=== PATIENT | female | born 1995 | race Caucasian/White ===

== ENCOUNTER 2021-05-24 21:18 | Emergency (ER) | payer OTHER, SELFPAY ==
[2021-05-24 22:01] VITALS: BP 131/83; PULSE 100; RESP 18; TEMP 36.1; O2SAT 100; BMI 72.0
--- NOTE | 2021-05-24 23:30 | ED.ANIMALBIT ---
HPI - Animal Bite General Chief Complaint: Animal Bite Stated Complaint: dog bite Source: patient Mode of arrival: ambulatory Limitations: no limitations History of Present Illness HPI narrative: 25-year-old female with no significant past medical history presents with suspected dog bite to her 3rd right finger. Patient was 2 dogs from fighting, and feels that this could either be a bite or a pinch injury from a prong collar. She did clean out the wound, and has the paperwork that documents proper vaccination for both animals. She did not report any other symptoms. MD complaint: animal bite Onset (ago): hour(s) (Within the hour of arrival) Animal: dog Description of animal: immunizations UTD Mechanism: bite Location - Extremities: right: hand (Right 3rd finger) Pain description: burning Severity scale (1-10): 4 Context: animals fighting Associated symptoms: bleeding Treatments prior to arrival: wound dressing(s) and irrigation Related Data Patient tetanus UTD: No Previous Rx's Medication Instructions Recorded amoxicillin 875 mg-potassium 1 tab PO Q12H 10 Days #20 tab 05/24/21 clavulanate 125 mg tablet (Augmentin) Allergies Allergy/AdvReac Type Severity Reaction Status Date / Time No Known Allergies Allergy Verified 05/24/21 22:01 Review of Systems Review of Systems: Constitutional: No Fever, No Chills ENT/Mouth: No Ear Pain, No Hoarseness, No sore throat Eyes: No Eye Pain, No Swelling, No Redness, No Foreign Body Cardiovascular: No Chest Pain, No SOB Respiratory: No Cough, No Dyspnea Gastrointestinal: No Nausea, No Vomiting, No Diarrhea, No abdominal Pain Genitourinary: No Dysuria, No Hematuria Musculoskeletal: positive right 3rd finger pain, No Myalgias, No Joint Swelling Skin: Positive abrasion to the right 3rd finger, No Skin lacerations, No rash Neuro: No Weakness, No Numbness, No Paresthesias, No Loss of Consciousness, No Dizziness, No Headache Psych: No Anxiety/Panic, No Depression Heme/Lymph: no easy bruising, no Lymphadenopathy Endocrine: No Polyuria, No Polydipsia Yes all other systems are reviewed and are negative [facility] Past Medical History Attestation statement: The following information was validated with the patient. Source: old records reviewed Medical History (Updated 05/24/21 @ 23:33 by Farheen Baxter NP) Obesity Thyroid activity decreased Social History Social History Advance Directives: No Patient : No Physical Exam Vital Signs: Vital Signs: Last Vital Signs Temp 97.0 F 05/24/21 22:01 Pulse 100 05/24/21 22:01 Resp 18 05/24/21 22:01 BP 131/83 05/24/21 22:01 Pulse Ox 100 05/24/21 22:01 Body Mass Index 72.0 Appearance: Alert. Oriented X3. No acute distress. Eyes: Pupils equal, round and reactive to light. ENT: Pharynx normal. Neck: Normal inspection. Neck supple. CVS: Normal heart rate and rhythm. Pulses normal. Respiratory: No respiratory distress. Breath sounds normal. Abdomen: Soft and nontender. Skin: 0.25 cm abrasion to the pad of the 3rd right finger, Skin warm and dry. Normal skin color. Normal skin turgor. Extremities: No lower extremity edema. Neuro: No motor deficit. No sensory deficit. Cranial nerves 2-12 intact. Course Course Course Narrative: Patient presents with a small superficial abrasion, possible puncture wound to the 3rd right pad of her finger tip. Suspected to be dog bite or injury from a caller. She did remove her fingernail on her own. Dogs are fully vaccinated. Plan of care is to treat with Augmentin and to update her Tdap vaccine. She does have full range of motion, and no indication of tendon injury to the extremity. Patient irrigated and cleaned her own wound with copious amounts of saline and hydrogen peroxide Patient will be discharged with Augmentin. Patient verbalized understanding of and agrees plan of care discharge home. MDM - Animal Bite Differential Diagnosis Differential diagnosis: Likely bite by animal and dog bite Medical Records Attestation: I reviewed the patient's medical records. Discharge Plan Discharge Clinical Impression: Dog bite Qualifiers: Encounter type: initial encounter Qualified Code(s): W54.0XXA - Bitten by dog, initial encounter Patient Disposition: Home, Self-Care Instructions: Animal Bite (ED) Additional Instructions: You were evaluated for injuries sustained from a suspected dog bite. We updated your Tdap vaccine. Please take Augmentin twice a day for the next 10 days. Thank you for choosing this emergency department for evaluation. Please follow-up with primary care physician as needed. Return to the emergency department for any new, concerning, or worsening symptoms. Prescriptions: New amoxicillin-pot clavulanate [Augmentin] 875-125 mg tablet 1 tab PO Q12H 10 Days Qty: 20 RF: 0 Interventions: ED Discharge Assessment Last Done: 05/25/21 00:50 Discharge Date/Time: 05/25/21 00:51
[2021-05-25] MEDS: Diphth,Pertus(ACell),Tet Adult 0.5 ML SYRINGE IM (00:35)
[2021-05-25] MEDS: Amoxicillin/Potassium Clav 875 MG TABLET PO (00:35)
== END 2021-05-25 00:51 | disposition home or self-care (01) ==
PROVIDERS: Emergency Provider Internal Medicine; PCP Family Medicine
DX: S60.472A Other superficial bite of right middle finger, initial encounter (principal); W54.0XXA Bitten by dog, initial encounter; Y93.9 Activity, unspecified; Y92.9 Unspecified place or not applicable; Y99.9 Unspecified external cause status
CPT/HCPCS: 90471; 90715; 99283; 99284

== ENCOUNTER 2025-08-21 09:47 | Outpatient (REF) | payer OTHER, SELFPAY ==
--- OUTSIDE RECORDS SUMMARY | 2025-08-21 11:32 | XMS_ITS | Clinical Summary ---
Author Organization [employer] Address [address] [place] [address] [address] [place] [address] Care Team Providers Care Community Liaison Name Role Phone Yesenia Elaine MD Primary Care Provider [phone] Allergies No known active allergies Medications albuterol 108 (90 Base) MCG/ACT inhaler Inhale 2 puffs every 4 (four) hours if needed for wheezing. 18 g 08/11/20 25 2025 Active albuterol (2.5 MG/3ML) 0.083% nebulizer solution Take 3 mL (2.5 mg) by nebulization every 6 (six) hours if needed for wheezing. 75 mL 2 08/11/20 25 Active Tirzepatide-We ight Management (Zepbound) 2.5 MG/0.5ML solution auto-injectorI ndications:Cla ss 3 severe obesity with body mass index (BMI) greater than or equal to 70 in adult, unspecified obesity type, unspecified whether serious comorbidity present (HCC) Inject 0.5 mL (2.5 mg) under the skin 1 (one) time per week. 2 mL 1 08/11/20 25 Active albuterol (2.5 MG/3ML) 0.083% nebulizer solution INHALE 1 VIAL VIA NEBULIZER EVERY 6 HOURS NEEDED FOR WHEEZING 2024 Discontinued(R eorder (will not trigger notification to Pharmacy)) Active Problems Problem Noted Date Diagnosed Date Asthma 08/11/2025 Overview (08/11/2025): Whole life Obesity 08/11/2025 Overview (08/11/2025): Whole life Encounters Date Type Department Care Team Description 08/11/2025 9:30 AM EDT Office Visit [facility] [address] [place] [address] Yesenia Elaine MD Encounter for immunization (Primary Dx); Dietary counseling; Exercise counseling; Class 3 severe obesity with body mass index (BMI) greater than or equal to 70 in adult, unspecified obesity type, unspecified whether serious comorbidity present (HCC); Encounter for health-related screening; Abnormal uterine bleeding (AUB) 08/11/2025 Travel 08/10/2025 Travel 08/08/2025 Telephone [facility] [address] [place] [address] Emily Solorio MA Chart Prep 08/01/2025 Patient Outreach [facility] [address] [place] [phone] Yesenia Elaine MD Care Coordination (CHW outreach for SDOH housing search-referral completed ) 08/01/2025 Patient Outreach [facility] [address] [place] [phone] Jose Marin MD Pre-visit Planning (SDOH screening positive and Tobacco screening negative) from Last 3 Months Immunizations Immunization Administration Dates Next Due DTaP 06/27/2003, 9,04/30/1998,02/12,1997 HPV, Quadrivalent 09/27/2011 HPV, Unspecified 05/25/2011 Hep B, Adolescent or Pediatric 07/01/1998,1996,1997 Hib (HbOC) 12/16/1998, 8,02/12/1998,12/17 Influenza injectable quadriv alent IIV4 with preservative 08/10/2023,07/08/2022 Influenza, IIV3, injectable 07/24/2025 MMR 06/27/2003,12/16/1998 Meningococcal B, Unspecified 03/24/2011 Moderna Covid-19 Vaccine 12+ 08/24/2023,08/30/20 21 Moderna Covid-19 mNexspike Vaccine 12+ OPV, Trivalent 06/30/2003, 9,02/12/1998,12/17 Pneumococcal Conjugate PCV 20 08/11/2025 Pneumococcal Polysaccharide PPSV23 01/05/2018 TD (adult), 2 Lf tetanus tox oid, preservative free, adsorbed 05/03/2016 Tdap 05/25/2021,03/24/2011 Varicella 10/25/2007,01/13/1999 Family History Medical History Relation Name Comments Adjustment Disorder with Mix ed Anxiety and Depressed Mood Mother Anxiety disorder Mother Depression Mother Diabetes Paternal Grandmother Relation Name Status Comments Mother Paternal Grandmother Social History Tobacco Use Types Packs/Day Years [...] Orientation Straight 06/03/2025 10 :09 AM EDT Last Filed Vital Signs Vital Sign Reading [...] Mass Index 78.73 08/11/2025 9:24 AM EDT Plan of Treatment Upcoming Encounters Date Type Department Care Team (Late st Contact Info) Description 08/26/2025 11:20 AM EST Procedure Visit [facility] [address] [place] [address] Yesenia Elaine MD [address] [place] [address] 09/24/2025 3:45 PM EST Office Visit [facility] [address] [place] [address] Yesenia Elaine MD [address] [place] [address] Health Maintenance Due Date Last Done Comments HIV Screening 1997 Lipid Panel 1997 HPV Vaccines (3 - 2-dose series) 12/20/2011 09/27/2011, 05/25/2011 Family Planning (PISQ) 2012 Hepatitis C Screening 2015 Pap Smear 2018 Alcohol/Substance Use Screening 08/11/2026 08/11/2025 Depression Screening 08/11/2026 08/11/2025, 10/20/20 25 Disability Screening 08/11/2026 08/11/2025 SDOH Screening 08/11/2026 08/11/2025 Tobacco Screening 08/11/2026 08/11/2025 DTaP/Tdap/Td Vaccines (9 - Td or Tdap) 05/25/2031 05/25/2021, 05/03/2016, 03/24/2011, Additional history exists Zoster Vaccines (1 of 2) 2047 RSV Patients and Patients Aged 60 years or older (1 - 1-dose 75+ series) 2072 Hepatitis B Vaccines Completed 07/01/1998, 1997, 1997 HIB Vaccines Completed 12/16/1998, 06/1998, 02/12/1998, Additional history exists IPV Vaccines Completed 06/30/2003, 12/22, 02/12/1998, Additional history exists Meningococcal B Vaccine Aged Out 03/24/2011 No l onger eligible based on patient's age to complete this topic COVID-19 Vaccine Completed 07/23/2025, 11/2022, 08/12/2022, Additional history exists Influenza Vaccine Completed 07/24/2025, , 07/08/2022 Pneumococcal Vaccine: Pediatrics (0 to 5 Years) and At-Risk Patients (6 to 49) Years Completed 08/11/2025, 01/05/2018 Hepatitis A Vaccines Aged Out No long er eligible based on patient's age to complete this topic Meningococcal Vaccine Aged Out No krystal wero eligible based on patient's age to complete this topic RSV under 20 months Aged Out No longe r eligible based on patient's age to complete this topic Rotavirus Vaccines Aged Out No longer eligible based on patient's age to complete this topic Insurance [facility] Care Teams Community Liaison Relationship Specialty Start Date End Date Yesenia Elaine MD [address] [place] [address] PCP - General Family Medicine 08/11/25
[2025-08-21 14:19] LABS: MANUAL DIFF FLAG NO
[2025-08-21 14:35] LABS: Hematocrit 42.5 % (37.0-47.0); Hemoglobin 13.3 g/dl (12.0-16.0); Imm Gran Abs Auto 0.03 X10*3/uL (0.00-0.03); Imm Gran Pct Auto 0.4 % (0.0-0.4); Lymphocytes Absolute Auto 2.5 X10*3/uL (1.2-4.9); Mean Corpuscular HGB Conc 31.3 g/dl (31.0-35.0); Mean Corpuscular Hemoglobin 28.4 pg (27.0-33.0); Mean Corpuscular Volume 90.6 fL (80.0-98.0); NRBC Abs Auto 0.000 X10*3/uL (0.0-0.012); NRBC Pct Auto 0.0 /100WBC (0.0-0.2); Platelet Count 290 X10*3/uL (160-400); Red Blood Count 4.69 X10*6/uL (4.20-5.50); White Blood Count 7.4 X10*3/uL (4.8-10.8)
[2025-08-21 14:57] LABS: Alanine Aminotransferase 31 U/L (0-31); Albumin Level 4.5 g/dL (3.5-5.0); Alkaline Phosphatase 63 U/L (39-117); Anion Gap 11 (12-20); Aspartate Amino Transferase 27 U/L (5-31); Blood Urea Nitrogen 18 mg/dL (9-16); Calcium 9.2 mg/dL (8.4-10.2); Carbon Dioxide 28 mmol/L (22-29); Chloride 106 mmol/L (96-108); Cholesterol 154 mg/dL (<200); Estimated Glomerular Filt Rate > 60; HDL Cholesterol 45 mg/dL (>40); Potassium 4.0 mmol/L (3.3-5.1); Sodium 141 mmol/L (135-145); Total Protein 7.5 g/dL (6.5-8.0); Triglycerides 95 mg/dL (<150)
[2025-08-21 16:42] LABS: Free T4 (Free Thyroxine) 0.96 ng/dL (0.71-1.85)
[2025-08-22 04:46] LABS: HIV Num 1 0.07 S/CO (0.00-0.99); ~HepC Num1 0.10 S/CO (0.00-0.79); ~Hepatitis C Antibody Nonreactive (Nonreactive)
[2025-08-22 07:04] LABS: Rubeola IgG (Measles) 87.10 AU/mL
[2025-08-27 22:39] LABS: Testosterone, Free 3.6 pg/mL (0.1-6.4)
== END 2025-08-21 09:48 | disposition home or self-care (01) ==
LOC: HO.CHCLDS 09:47
PROVIDERS: Visit Provider Family Medicine
DX: Z01.84 Encounter for antibody response examination (principal); Z11.4 Encounter for screening for human immunodeficiency virus [HIV]; Z11.59 Encounter for screening for other viral diseases; E66.813 Obesity, class 3; Z68.45 Body mass index [BMI] 70 or greater, adult; Z13.9 Encounter for screening, unspecified; N93.9 Abnormal uterine and vaginal bleeding, unspecified; Z13.29 Encounter for screening for other suspected endocrine disorder
CPT/HCPCS: 36415; 80053; 80061; 82157; 82627; 83525; 84270; 84402; 84403; 84439; 84443; 85025; 86735; 86762; 86765; 86787; 86803; 87389

== ENCOUNTER 2025-09-02 14:21 | Outpatient (REF) | payer OTHER, SELFPAY ==
--- OUTSIDE RECORDS SUMMARY | 2025-08-11 08:30 | XMS_ITS | Encounter Summary ---
Author Organization [employer] Address [address] [place] [id number] Care Team Providers Care Last Greaser Name Role Phone Yesenia Elaine MD Primary Care Provider [phone] Reason for Referral * Imaging (Routine) - Authorized Specialty Diagnoses / Procedures Referred By Contac t Referred To Contact Radiology Diagnoses Abnormal uterine bleeding (AUB) Procedures US Pelvis Transvaginal Yesenia Elaine MD [address] [place] [address] Phone: tel: fax: [address] Phone: tel: fax: Referral ID Status Reason Start Date Expiration Date V isits Requested Visits Authorized [id number] Authorized 08/11/2025 08/11/2026 1 1 * Imaging (Routine) - Authorized Specialty Diagnoses / Procedures Referred By Contac t Referred To Contact Radiology Diagnoses Abnormal uterine bleeding (AUB) Procedures Us Pelvis complete Yesenia Elaine MD [address] [place] [address] Phone: tel: fax: [address] Phone: tel: fax: Referral ID Status Reason Start Date Expiration Date V isits Requested Visits Authorized [id number] Authorized 08/11/2025 08/11/2026 1 1 * Consultation (Routine) - Closed Specialty Diagnoses / Procedures Referred By Contdereck t Referred To Contact Bariatrics Diagnoses Class 3 severe obesity with body mass index (BMI) greater than or equal to 70 in adult, unspecified obesity type, unspecified whether serious comorbidity present (HCC) Yesenia Elaine MD [address] [place] [address] Phone: tel: fax: [facility] [place] [facility] Management [facility] Auxillary Conference [address] Phone: tel: fax: Referral ID Status Reason Start Date Expiration Date V isits Requested Visits Authorized [id number] Closed Specialty Services Required 08/11/2025 08/11/2026 1 1 Reason for Visit * Reason Comments Establish Care Encounter Details Date Type Department Care Team (Late st Contact Info) Description 08/11/2025 9:30 AM EDT Office Visit [facility] [address] [place] [address] Yesenia Elaine MD [address] [place] [address] Encounter for immunization (Primary Dx); Dietary counseling; Exercise counseling; Class 3 severe obesity with body mass index (BMI) greater than or equal to 70 in adult, unspecified obesity type, unspecified whether serious comorbidity present (HCC); Encounter for health-related screening; Abnormal uterine bleeding (AUB) Social History Tobacco Use Types Packs/Day Years Used Date Smoking Tobacco: Never Passive Smoke Exposure: Past Smokeless Tobacco: Never Tobacco Cessation:Counseling Given: Not Answered Alcohol Use Standard Drinks/Week Comments Never 0 (1 standard drink = 0.6 oz pur e alcohol) Depression Answer Date Recorded Patient Health Questionnaire-9 Score 4 08/11/2025 Patient Health Questionnaire-9 Score 4 08/11/2025 Last PHQ-9: Questionnaire Data Not on file 1 Housing Stability Answer Date Recorded What is your housing situation today? I have preston muir 08/01/[address] you li ve. Do you have problems with any of the following? None of the above 08/01/2025 Food Insecurity Answer Date Recorded Within the past 12 months, y ou worried that your food would run out before you got money to buy more: Never True 08/01/2025 Within the past 12 months,th e food you bought just didn't last and you didn't have enough money to get more: Never True 07/2025 Transportation Answer Date Recorded In the past 12 months, has l ack of transportation kept you from medical appts, meetings, work or from getting things needed for daily living? No 08/01/2025 Utilities Answer Date Recorded In the past 12 months, has t he electric, gas, oil or water company threatened to shut off services in your home? No 08/11/2025 Depression Answer Date Recorded Patient Health Questionnaire-2 Score 2 08/11/2025 Internet Access Answer Date Recorded Internet Access Q1 Yes 08/01/2025 Internet Access Q2 Not on file 08/01/2025 Comments No Sex and Gender Information Value Date Recorded Sex Assigned at Female 05/30/2025 10:35 AM EDT Legal Sex Female 10:33 AM EDT Gender Identity Female 05/30/2025 10:35 AM EDT Sexual Orientation Straight 06/03/2025 10 :09 AM EDT documented as of this encounter Last Filed Vital Signs Vital Sign Reading Time Taken Comments Blood Pressure 134/84 08/11/2025 9:24 AM EDT Pulse 82 08/11/2025 9:24 AM EDT Temperature 37.2 C (99 F) 08/11/2025 9:24 AM EDT Respiratory Rate 20 08/11/2025 9:24 AM EDT Oxygen Saturation 98% 08/11/2025 9:24 AM EDT Inhaled Oxygen Concentration - - Weight 199 kg (438 lb 12.8 oz) 08/11/2025 9:24 A M EDT Height 159 cm (5' 2.6 ) 08/11/2025 9:24 AM EDT Body Mass Index 78.73 08/11/2025 9:24 AM EDT documented in this encounter Functional Status * Over the past 2 weeks, how often have you been bothered by any of the following problems? Question Answer Date of Assessment Author Patient Health Questionnaire -2 Score 2 08/11/2025 10:23 AM Dominique Hernandez MA * Little interest or pleasure in doing things Answer Date of Assessment Author Several days 08/11/2025 10:23 AM EDT Dominique Ying MA * Feeling down, depressed, or hopeless Answer Date of Assessment Author Several days 08/11/2025 10:23 AM EDT Dominique Ying MA * Trouble falling or staying asleep, or sleeping too much Answer Date of Assessment Author Not at all 08/11/2025 10:23 AM EDDominique Bach MA * Feeling tired or having little energy Answer Date of Assessment Author Several days 08/11/2025 10:23 AM EDDominique Bach MA * Poor appetite or overeating Answer Date of Assessment Author Not at all 08/11/2025 10:23 AM EDDominique Bach MA * Feeling bad about yourself - or that you are a failure or have let yourself or your family down Answer Date of Assessment Author Several days 08/11/2025 10:23 AM Dominique Hernandez MA * Trouble concentrating on things, such as reading the newspaper or watching television Answer Date of Assessment Author Not at all 08/11/2025 10:23 AM Dominique Hernandez MA * Moving or speaking so slowly that other people could have noticed? Or the opposite - being so fidgety or restless that you have been moving around a lot more than usual. Answer Date of Assessment Author Not at all 08/11/2025 10:23 AM Dominique Hernandez MA * Thoughts that you would be better off or hurting yourself in some way Answer Date of Assessment Author Not at all 08/11/2025 10:23 AM Dominique Hernandez MA * Patient Health Questionnaire-9 Score Answer Date of Assessment Author 4 08/11/2025 10:23 AM Dominique Hernandez MA * How difficult have these problems made it for you to do your work, take care of things at home, or get along with other people? Answer Date of Assessment Author Not difficult at all 08/11/2025 10:23 AM EDT Dominique Richardson MA documented as of this encounter Progress Notes * Yesenia Elaine MD - 08/11/2025 9:30 AM EDT Subjective Patient ID: Gely Griffiths is a 29 y.o. female who presents for [facility]. Dr. Marisol Pompa, [place] Gely Griffiths is a 29-year-old female with a history of asthma and weight issues [facility] and discuss weight management and concerns about PCOS. The patient reports having weight issues her entire life and currently weighs 403 pounds. She has tried various approaches including property inspector, exercise, and meal plans without success. Earlier this year, she was participating in a GLP-1 program but had to discontinue due to cost. She has been doing [facility] since October and was previously working with Dr. Figueroa on thyroid medications, though she reports these are not really working. She was in the process of starting discussions about bariatric surgery with her previous provider. Regarding PCOS concerns, the patient experiences cystic acne, especially in the summertime, and hadhorrific menstrual cramps when younger. She was on control for a long time but had to switch every year and a half because her periods would become irregular again. Her last menstrual period was July 19 through July 23, with cycles typically lasting 3 to 5 days and occurring approximately every 20 days. The patient has a history of asthma and required urgent care treatment the day after An lastyear, where she was given a nebulizer. She denies smoking cigarettes, chewing tobacco, alcohol use,drug use, or vaping. She reports no one smokes around her as her mother quit smoking. She has never been and is currently sexually active with her male partner of 8 years, to whom she is engaged. She and her partner are not actively using control, describing their approach as nm-ax-ibhjyie-it-happens. She has not had a Pap smear in the last 3 years. Medical History - Asthma - Weight issues throughout entire life - Thyroid condition, currently being treated with various medications without success - Urgent care visit for asthma exacerbation on October 17 of last year, treated with nebulizer - Never been Surgical History - Tonsillectomy Medications and Supplements - Thyroid medications - Tried different medications with Dr. Merrill. Not really working. - GLP-1 medication weekly - Was in GLP-1 program earlier this year. Couldn't afford it anymore. - control - Was on for a long time. Had to switch every year and a half because it would go back to being irregular. 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 Genitourinary: Positive for horrific menstrual cramps when younger. Review of Systems Constitutional: Negative for appetite change, fatigue and fever. HENT: Negative for congestion, postnasal drip and rhinorrhea. Eyes: Negative for discharge and redness. Respiratory: Negative for apnea, cough, chest tightness and shortness of breath. Cardiovascular: Negative for chest pain. Gastrointestinal: Negative for abdominal pain. Endocrine: Negative for polyphagia. Genitourinary: Negative for difficulty urinating, dysuria and urgency. Musculoskeletal: Negative for arthralgias. Neurological: Negative for dizziness, light-headedness, numbness and headaches. Hematological: Negative for adenopathy. Does not bruise/bleed easily. Objective Visit Vitals BP 134/84 Pulse 82 Temp 99 ??F (37.2 ??C) (Oral) Resp 20 Ht 5' 2.6 (1.59 m) Wt 438 lb 12.8 oz (199 kg) LMP 07/19/2025 SpO2 98% BMI 78.73 kg/m?? OB Status Having periods Smoking Status Never BSA 2.96 m?? Physical Exam Constitutional: General: She is not in acute distress. Appearance: She is obese. She is not ill-appearing. HENT: Head: Normocephalic and atraumatic. Nose: No congestion. Pulmonary: Effort: Pulmonary effort is normal. No respiratory distress. Breath sounds: Normal breath sounds. Musculoskeletal: Cervical back: Normal range of motion. Neurological: General: No focal deficit present. Mental Status: She is alert. Psychiatric: Mood and Affect: Mood normal. Assessment/Plan Problem List Items Addressed This Visit Obesity Relevant Medications Tirzepatide-Weight Management (Zepbound) 2.5 MG/0.5ML solution auto-injector Other Relevant Orders Referral to Bariatric Surgery Lipid Panel, Standard CBC auto differential Comprehensive Metabolic Panel Insulin TSH W/Reflex to FT4 Other Visit Diagnoses Encounter for immunization - Primary Relevant Orders PCV-20 VACCINE 6 wks + (Completed) Measles, Mumps, and Rubella (MMR) Antibodies (IgG) Panel, Immune Status Varicella Zoster Antibody, IgG Dietary counseling Relevant Medications Tirzepatide-Weight Management (Zepbound) 2.5 MG/0.5ML solution auto-injector Exercise counseling Relevant Medications Tirzepatide-Weight Management (Zepbound) 2.5 MG/0.5ML solution auto-injector Encounter for health-related screening Relevant Orders HIV-1/2 Antigen and Antibodies, Fourth Generation, with Reflexes Hepatitis C Antibody with Reflex to HCV, RNA, Quantitative, Real-Time PCR Abnormal uterine bleeding (AUB) Relevant Orders Us Pelvis complete US Pelvis Transvaginal Testosterone, Free (Dialysis) And Total, MS DHEA Sulfate Sex Hormone Binding Globulin (SHBG) Androstenedione Gely Griffiths is a 29-year-old female with a history of asthma and weight issues presenting for establishment of care and discussion of weight management, thyroid concerns, and possible PCOS evaluation. Obesity Assessment: Patient weighs 403 pounds with BMI 78.7 kg/m. She has struggled with weight issues her entire life and has tried various interventions including property inspector, exercise, meal plans, and GLP-1 program earlier this year which she discontinued due to cost. She was previously discussing bariatric surgery with prior provider. She has been doing [facility] since October and needs to demonstrate 3consecutive months of weight management attempts for insurance coverage of GLP-1 medications. Plan: - Refer to bariatric surgery to start evaluation process - Initiate GLP-1 medication (zepbound discussed as more efficacious option with GLP-1 and GIP components to reduce nausea and side effects) - Start with initial dose and titrate based on response - Recommend multivitamins while on GLP-1 therapy per new guidelines - Check calcium, vitamin D, vitamin B12, and iron levels - Patient educated on GLP-1 mechanism of action and administration technique with demo pen - Patient will receive box with four pens for weekly injections Possible PCOS Assessment: Patient reports cystic acne especially in summer, history of severe menstrual cramps when younger, irregular periods requiring frequent control changes every year and a half, and current short menstrual cycles of approximately 20 days. PCOS diagnosis requires hormone disruption, elevated testosterone levels, and polycystic ovaries on imaging. Plan: - Order transvaginal pelvic ultrasound at [facility] to evaluate for polycystic ovaries - Order AMH test to assess follicle count - Check hormone levels including testosterone and DHA - Order sex hormone binding globulin - If fertility concerns arise, she will check estrogen and progesterone levels and refer to medicine tech for fallopian tube dye test - Potential referral to [facility] if needed Thyroid disorder Assessment: Patient reports ongoing thyroid issues with previous provider Dr. Figueroa, she has tried different thyroid medications without significant improvement. Plan: - Check thyroid levels Asthma Assessment: Patient has history of asthma with family history of maternal asthma. She required nebulizer treatment at urgent care in September of last year. Plan: - Administer pneumonia vaccination as recommended for patients with asthma history Preventive care needs Assessment: 29-year-old female sexually active with male partner for 8 years, not using contraception. No Pap smear in last 3 years. She needs routine preventive screening and immunizations. Plan: - Schedule Pap smear (available Monday and mornings) - Check immunity to varicella and rubella, administer vaccines if not immune - Recommend vitamins given potential for unexpected - Order HIV and Hepatitis C screening - Check cholesterol, kidney function, liver function, and insulin levels documented in this encounter Plan of Treatment Upcoming Encounters Date Type Department Care Team (Late st Contact Info) Description 09/24/2025 3:45 PM EST Office Visit [facility] [address] [place] [address] Yesenia Elaine MD [address] [place] [address] Scheduled Orders Name Type Priority Associated Diagnoses Orde r Schedule Us Pelvis complete Imaging Routine Abnormal uterine bleeding (AUB) Expected: 08/11/2025, Expires: 08/11/2026 US Pelvis Transvaginal Imaging Routine Abnormal uterine bleeding (AUB) Expected: 08/11/2025, Expires: 08/11/2026 Scheduled Referrals Name Type Priority Associated Diagnoses Orde r Schedule Referral to Bariatric Surgery Outpatient Referral Routine Class 3 severe obesity with body mass index (BMI) greater than or equal to 70 in adult, unspecified obesity type, unspecified whether serious comorbidity present (HCC) Expected: 08/11/2025 (Approximate), Expires: 08/11/2026 documented as of this encounter Procedures Procedure Name Priority Date/Time Associated Diagnosis Comments TSH W/REFLEX TO FT4 Routine 08/21/2025 9 :52 AM EDT Class 3 severe obesity with body mass index (BMI) greater than or equal to 70 in adult, unspecified obesity type, unspecified whether serious comorbidity present (HCC) MEASLES, MUMPS, AND RUBELLA (MMR) AB (IGG) PANEL, IMMUNE STATUS Routine 08/21/2025 9:52 AM EDT Encounter for immunization SEX HORMONE BINDING GLOBULIN Routine 08/21/2025 9:52 AM EDT Abnormal uterine bleeding (AUB) CBC WITH AUTO DIFFERENTIAL Routine 08/21/2025 9:52 AM EDT Class 3 severe obesity with body mass index (BMI) greater than or equal to 70 in adult, unspecified obesity type, unspecified whether serious comorbidity present (HCC) HEPATITIS C AB W/REFL TO HCV RNA, QN, PCR Routine 08/21/2025 9:52 AM EDT Encounter for health-related screening INSULIN Routine 08/21/2025 9:52 AM EDT Class 3 severe obesity with body mass index (BMI) greater than or equal to 70 in adult, unspecified obesity type, unspecified whether serious comorbidity present (HCC) DHEA SULFATE Routine 08/21/2025 9:52 AM EDT Abnormal uterine bleeding (AUB) ANDROSTENEDIONE Routine 08/21/2025 9:52 AM EDT Abnormal uterine bleeding (AUB) HIV 1/2 ANTIGEN/ANTIBODY, FOURTH GENERATION W/RFL Routine 08/21/2025 9:52 AM EDT Encounter for health-related screening TESTOSTERONE, FREE (DIALYSIS) AND TOTAL,MS Routine 08/21/2025 9:52 AM EDT Abnormal uterine bleeding (AUB) VARICELLA ZOSTER ANTIBODY, IGG Routine 08/21/2025 9:52 AM EDT Encounter for immunization LIPID PANEL, STANDARD Routine 08/21/2025 9:52 AM EDT Class 3 severe obesity with body mass index (BMI) greater than or equal to 70 in adult, unspecified obesity type, unspecified whether serious comorbidity present (HCC) COMPREHENSIVE METABOLIC PANEL Routine 08/21/2025 9:52 AM EDT Class 3 severe obesity with body mass index (BMI) greater than or equal to 70 in adult, unspecified obesity type, unspecified whether serious comorbidity present (HCC) documented in this encounter Results * Androstenedione (08/21/2025 9:52 AM EDT) [facility] Signature Androstenedione 65 ng/dL [facility] Comment:Adult Female Referen ce Ranges for Androstenedione: Mid Follicular: 51- 213 ng/dL Surge: 73-230 ng/dL Mid Luteal: 73-184 ng/dL Postmenopausal Phase: 20-75 ng/dLThis test was developed and its analytical performancecharacteristics have been determined by [employer].It has not been cleared or approved by the FDA. This assayhas been validated pursuant to the CLIA regulations and isused for clinical purposes.THIS TEST WAS PERFORMED AT:[employer] [id number] [place] [address]RQCDEELAINE GAONA MD,PHD,TOSIN Blood Venous blood specimen / Unknown 08/21/2025 9:52 AM EDT 08/21/2025 2:16 PM EDT us Yesenia Elaine MD LAB BLOOD ORDERABLES Final Re sult Performing Organization Address [facility]/ZIP Co de Phone Number [facility] [address] [place] [phone] [phone] * (ABNORMAL) Sex Hormone Binding Globulin (SHBG) (08/21/2025 9:52 AM EDT) Sex Hormone Binding Globulin 14(A) 17 - 124 nmol/L [facility] Comment:THIS TEST WAS PERFOR MED AT:[employer] [place] [phone] SYLVESTER MD Blood Venous blood specimen / Unknown 08/21/2025 9:52 AM EDT 08/21/2025 2:16 PM EDT Yesenia Elaine MD LAB BLOOD ORDERABLES Final Re sult Performing Organization Address [facility] Co de Phone Number [facility] [address] [place] [phone] * (ABNORMAL) DHEA Sulfate (08/21/2025 9:52 AM EDT) DHEA Sulfate 406(A) 14 - 349 mcg/dL [facility] Comment:THIS TEST WAS PERFOR MED AT:[employer] [place] [phone] SYLVESTER MD Blood Venous blood specimen / Unknown 08/21/2025 9:52 AM EDT 08/21/2025 2:16 PM EDT Yesenia Elaine MD LAB BLOOD ORDERABLES Final Re sult Performing Organization Address [facility] Co de Phone Number [facility] [address] [place] [phone] * Testosterone, Free (Dialysis) And Total, MS (08/21/2025 9:52 AM EDT) Testosterone, Total 21 2 - 45 ng/dL [facility] Comment:For additional infor mation, please refer [email or web address].[email or web address]/faq/[email or web address](This link is being provided for informational/educational purposes only.)This test was developed and its analytical performancecharacteristics have been determined by [employer] [place], [place]. It hasnot been cleared or approved by the U.S. Food and DrugAdministration. This assay has been validated pursuantto the CLIA regulations and is used for clinicalpurposes. Testosterone, Free 3.6 0.1 - 6.4 pg/mL [facility] Comment:This test was develo ped and its analytical performancecharacteristics have been determined by [employer] [place], [place]. It hasnot been cleared or approved by the U.S. Food and DrugAdministration. This assay has been validated pursuantto the CLIA regulations and is used for clinicalpurposes.THIS TEST WAS PERFORMED AT:[employer]/[id number] [place] [address]PBCSYNHCALLIE ARRINGTON MD,PHD Blood Venous blood specimen / Unknown 08/21/2025 9:52 AM EDT 08/21/2025 2:16 PM EDT us Yesenia Elaine MD LAB BLOOD ORDERABLES Final Re sult [facility] [address] [place] [phone] * Varicella Zoster Antibody, IgG (08/21/2025 9:52 AM EDT) Varicella IgG Antibody 13.10 S/CO [facility] Comment:Signal to Cut-off S/ CO Interpretation --------- <1.00 Negative - Antibody not detected > or = 1.00 Positive - Antibody detected A positive result indicates that the patient has antibody to VZV but does not differentiate between an active or past infection. The clinical diagnosis must be interpreted in conjunction with the clinical signs and symptoms of the patient. This assay reliably measures immunity due to previous infection but may not be sensitive enough to detect antibodies induced by vaccination. Thus, a negative result in a vaccinated individual does not necessarily indicate susceptibility to VZV infection. A more sensitive test for vaccination-induced immunity is Varicella Zoster Virus Antibody Immunity Screen, ACIF.THIS TEST WAS PERFORMED AT:[employer] [address] [id number] SYLVESTER MD Blood Venous blood specimen / Unknown 08/21/2025 9:52 AM EDT 08/21/2025 2:23 PM EDT us Yesenia Elaine MD LAB BLOOD ORDERABLES Final Re sult [facility] [address] [place] [address] [phone] * (ABNORMAL) Measles, Mumps, and Rubella (MMR) Antibodies??(IgG) Panel, Immune Status (08/21/2025 9:52 AM EDT) Mumps Virus IgG Antibody <9.00(A) AU/mL [facility] Comment:AU/mL Interpretation ------- <9.00 Not consistent with immunity9.00-10.99 Equivocal>10.99 Consistent with immunityThe presence of mumps IgG antibody suggests immunizationor past or current infection with mumps virus. Rubella IgG Antibody 1.75 Index [facility] Comment:Index Interpretation ----- <0.90 Not consistent with immunity 0.90-0.99 Equivocal > or = 1.00 Consistent with immunityThe presence of rubella IgG antibody suggestsimmunization or past or current infection withrubella virus.THIS TEST WAS PERFORMED AT:[employer] [address] [id number] SYLVESTER MD Rubeola IgG (Measles) 87.10 AU/mL [facility] Comment:AU/mL Interpretation ----- <13.50 Not consistent with [id number] Equivocal>16.49 Consistent with immunityThe presence of measles IgG suggests immunization orpast or current infection with measles virus.For additional information, please refer [email or web address](This link is being provided for informational/educational purposes only.) Blood 08/21/2025 9:52 AM EDT 08/21/2025 2:23 PM EDT Yesenia Elaine MD LAB BLOOD ORDERABLES Final Re sult Performing Organization Address [facility] Co de Phone Number [facility] [address] [place] [phone] * Hepatitis C Antibody with Reflex to HCV, RNA, Quantitative, Real-Time PCR (08/21/2025 9:52 AM EDT) Hepatitis C Antibody Nonreactive Nonreactive [facility] Comment:Antibodies to HCV no t detected; does not exclude early acuteHCV infection. Blood Venous blood specimen / Unknown 08/21/2025 9:52 AM EDT 08/21/2025 2:23 PM EDT us Yesenia Elaine MD LAB BLOOD ORDERABLES Final Re sult Performing Organization Address [facility] Co de Phone Number [facility] [address] [place] [phone] * HIV-1/2 Antigen and Antibodies, Fourth Generation, with Reflexes (08/21/2025 9:52 AM EDT) HIV AB/AG Nonreactive Nonreactive [facility] Comment:HIV-1 p24 Ag and/or HIV-1/HIV-2 Ab not detected.A test result that is nonreactive does not exclude thepossibility of exposure to or infection with HIV-1 and/orHIV-2. Nonreactive results in this assay for individualswith prior exposure to HIV-1 and/or HIV-2 may be due toantigen and antibody levels that are below the limit ofdetection of this assay.The [employer] Alinity HIV Ag/Ab Combo assay result andsupplemental assay results should be interpreted inconjunction with the patient's clinical presentation,history and other laboratory results. If the results areinconsistent with clinical evidence, additional testing issuggested to confirm the result. Blood Venous blood specimen / Unknown 08/21/2025 9:52 AM EDT 08/21/2025 2:23 PM EDT Yesenia Elaine MD LAB BLOOD ORDERABLES Final Re sult Performing Organization Address [facility] Co de Phone Number [facility] [address] [place] [phone] * (ABNORMAL) TSH W/Reflex to FT4 (08/21/2025 9:52 AM EDT) TSH reflex Free T4 4.70(H) 0.32 - 4.0 uIU/mL [facility] Blood Venous blood specimen / Unknown 08/21/2025 9:52 AM EDT 08/21/2025 2:23 PM EDT Yesenia Elaine MD LAB BLOOD ORDERABLES Final Re sult Performing Organization Address [facility] Co de Phone Number [facility] [address] [place] [phone] * Insulin (08/21/2025 9:52 AM EDT) Insulin 18 2 - 29 uU/mL [facility] Comment:This test was perfor med using the Harris chemiluminescentmethod. Values obtained from different assay methods cannot beused interchangeably. This insulin assay shows a possiblecross-reactivity with antibodies generated against insulin(immunoreactive insulin and some patients treated withbovine or porcine insulin). Insulin levels may be measuredlower in patients with insulin autoimmune syndrome orfamilial high pro-insulinemia. Blood Venous blood specimen / Unknown 08/21/2025 9:52 AM EDT 08/21/2025 2:23 PM EDT us Yesenia Elaine MD LAB BLOOD ORDERABLES Final Re sult [facility] [address] [place] [phone] * (ABNORMAL) Comprehensive Metabolic Panel (08/21/2025 9:52 AM EDT) Sodium 141 135 - 145 mmol/L [facility] Potassium 4.0 3.3 - 5.1 mmol/L [facility] Chloride 106 96 - 108 mmol/L [facility] Carbon Dioxide 28 22 - 29 mmol/L [facility] Anion Gap 11(L) 12 - 20 [facility] Urea Nitrogen (BUN) 18(H) 9 - 16 mg/dL [facility] Creatinine, Serum 0.49(L) 0.5 - 1.4 mg/dL [facility] Estimated Glomerular Filt Rate >60 [facility] Comment:Chronic Kidney Disea se: Estimated GFR < 60 mL/min/[id number] Kidney Disease: Estimated GFR < 15 mL/min/1.73m2 Glucose 89 60 - 115 mg/dL [facility] Calcium 9.2 8.4 - 10.2 mg/dL [facility] Bilirubin, Total 0.4 0.0 - 1.0 mg/dL [facility] Aspartate Amino Transferase 27 5 - 31 U/L [facility] Alanine Aminotransferase 31 0 - 31 U/L [facility] Total Protein 7.5 6.5 - 8.0 g/dL [facility] Albumin Level 4.5 3.5 - 5.0 g/dL [facility] Alkaline Phosphatase 63 39 - 117 U/L [facility] Blood Venous blood specimen / Unknown 08/21/2025 9:52 AM EDT 08/21/2025 2:23 PM EDT us Yesenia Elaine MD LAB BLOOD ORDERABLES Final Re sult [facility] [address] [place] [phone] * (ABNORMAL) CBC auto differential (08/21/2025 9:52 AM EDT) White Blood Count 7.4 4.8 - 10.8 X10*3/uL [facility] Red Blood Count 4.69 4.20 - 5.50 X10*6/uL [facility] Hemoglobin 13.3 12.0 - 16.0 g/dl [facility] Hematocrit 42.5 37.0 - 47.0 % [facility] Mean Corpuscular Volume 90.6 80.0 - 98.0 fL [facility] Mean Corpuscular Hemoglobin 28.4 27.0 - 33.0 pg [facility] Mean Corpuscular HGB Conc 31.3 31.0 - 35.0 g/dl [facility] Red Cell Distribution Width 12.8 11.0 - 16.0 % [facility] Platelet Count 290 160 - 400 X10*3/uL [facility] Mean Platelet Volume 11.2 9.4 - 12.3 fL [facility] Neutrophils Percent Auto 53.6 45 - 73 % [facility] Imm Gran Pct Auto 0.4 0.0 - 0.4 % [facility] Lymphocytes Percent Auto 33.5 20 - 40 % [facility] Monocytes Percent Auto 5.4 2 - 11 % [facility] Eosinophils Percent Auto 7.0(H) 0 - 4 % [facility] Basophils Percent Auto 0.1 0 - 2 % [facility] NRBC Pct Auto 0.0 0.0 - 0.2 /100WBC [facility] Neutrophils Absolute Auto 4.0 2.0 - 8.3 x10*3/uL [facility] Imm Gran Abs Auto 0.03 0.00 - 0.03 X10*3/uL [facility] Lymphocytes Absolute Auto 2.5 1.2 - 4.9 X10*3/uL [facility] Monocytes Absolute Auto 0.4 0.1 - 1.2 X10*3/uL [facility] Eosinophils Absolute Auto 0.5(H) 0.0 - 0.4 X10*3/uL [facility] Basophils Absolute Auto 0.0 0.0 - 0.2 X10*3/uL [facility] NRBC Abs Auto 0.000 0.0 - 0.012 X10*3/uL [facility] Blood Venous blood specimen / Unknown 08/21/2025 9:52 AM EDT 08/21/2025 2:16 PM EDT us Yesenia Elaine MD LAB BLOOD ORDERABLES Final Re sult [facility] [address] [place] [phone] * Lipid Panel, Standard (08/21/2025 9:52 AM EDT) Triglycerides 95 <150 mg/dL [facility] Comment:Desirable Triglyceri de: less than 150 mg/dLBorderline High Triglyceride 150-199 mg/dLHigh Triglyceride: 200-499 mg/dLVery High Triglyceride: greater than or equal to 5OO mg/dL Cholesterol 154 <200 mg/dL [facility] Comment:Desirable Cholestero l: less than 200 mg/dLBorderline High Cholesterol: 200-239 mg/dLHigh Cholesterol: greater than 239 mg/dL LDL Cholesterol Calculated 90 <100 mg/dL [facility] Comment:Desirable LDL: less than 100 mg/dLNear Optimal/Above Optimal LDL: 110- 129 mg/dLBorderline High LDL: 130-159 mg/dLHigh LDL: 160-189 mg/dLVery High LDL: greater than or equal to 190 mg/dL HDL Cholesterol 45 >40 mg/dL [facility] Comment:Desirable HDL: great er than 40 mg/dL Note: This HDL assay may give artificially low results in patients with liver disease. Blood Venous blood specimen / Unknown 08/21/2025 9:52 AM EDT 08/21/2025 2:23 PM EDT us Yesenia Elaine MD LAB BLOOD ORDERABLES Final Re sult [facility] [address] [place] [phone] documented in this encounter Visit Diagnoses Diagnosis Encounter for immunization- Primary Dietary counseling Dietary surveillance and counseling Exercise counseling Class 3 severe obesity with body mass index (BMI) greater than or equal to 70 in adult, unspecified obesity type, unspecified whether serious comorbidity present (HCC) Encounter for health-related screening Abnormal uterine bleeding (AUB) documented in this encounter Additional Health Concerns Assessment Noted Time PHQ-9 Depression Total Score: 4 08/11/20 10:23 AM EDT documented as of this encounter Care Teams Last Greaser Relationship Specialty Start Date End Date Yesenia Elaine MD [address] [place] [phone] PCP - General Family Medicine 08/11/25 documented as of this encounter
--- OUTSIDE RECORDS SUMMARY | 2025-09-02 11:00 | XMS_ITS | Encounter Summary ---
Author Organization [employer] [facility] Address [address] [place] [address] Care Team Providers Care Presser [employer] Name Role Phone Yesenia Elaine MD Primary Care Provider [phone] Reason for Referral * Consultation (Routine) - Pending Review Specialty Diagnoses / Procedures Referred By Tyler jasso Referred To Contact Obstetrics Diagnoses Infertility counseling Yesenia Elaine MD [address] [phone] Phone: tel: fax: Referral ID Status Reason Start Date Expiration Date Visits Requested Visits Authorized [id number] Pending Review Specialty Services Required 09/02/2026 1 1 * Medications - Closed Specialty Diagnoses / Procedures Referred By Tyler jasso Referred To Contact Diagnoses Class 3 severe obesity with body mass index (BMI) greater than or equal to 70 in adult, unspecified obesity type, unspecified whether serious comorbidity present (HCC) Yesenia Elaine MD [address] [place] [address] Phone: tel: fax: Referral ID Status Reason Start Date Expiration Date Visits Re quested Visits Authorized [id number] Closed 1 1 Reason for Visit * Reason Comments Cervical Cancer Encounter Details Date Type Department Care Team (Latest Contact Info) Description 09/02/2025 11:00 AM EST Procedure Visit [facility] [address] [place] [address] Yesenia Elaine MD [address] [place] [address] Cervical cancer screening (Primary Dx); Class 3 severe obesity with body mass index (BMI) greater than or equal to 70 in adult, unspecified obesity type, unspecified whether serious comorbidity present (HCC); Infertility counseling Social History Tobacco Use Types Packs/Day Years Used Date Smoking Tobacco: Never Passive Smoke Exposure: Past Smokeless Tobacco: Never Alcohol Use Standard Drinks/Week Comments Never 0 (1 standard drink = 0.6 oz pur e alcohol) Depression Answer Date Recorded Patient Health Questionnaire-9 Score 4 08/11/2025 Patient Health Questionnaire-9 Score 4 08/11/2025 Last PHQ-9: Questionnaire Data Not on file 1 Housing Stability Answer Date Recorded What is your housing situation today? I have [place] 08/01/[address] you li [...] t he electric, gas, oil or water [employer] threatened to shut off services in your [...] Sign Reading Time Taken Comments Blood Pressure 126/72 09/02/2025 10:55 AM EST Pulse 82 09/02/2025 10:55 AM EST Temperature 36.2 C (97.2 F) 09/02/2025 10:55 AM EST Respiratory Rate 20 09/02/2025 10:55 AM EST Oxygen Saturation 98% 09/02/2025 10:55 AM EST Inhaled Oxygen Concentration - - Weight 189 kg (417 lb 6.4 oz) 09/02/2025 10:55 A M EST Height 157.5 cm (5' 2 ) 09/02/2025 10:55 AM EST Body Mass Index 76.34 09/02/2025 10:55 AM EST documented in this encounter Progress Notes * Yesenia Elaine MD - 09/02/2025 11:00 AM EST Subjective Patient ID: Gely Griffiths is a 29 y.o. female who presents for Cervical Cancer. 29 y.o. female here for annual well woman preventive exam. LMP: Patient's last menstrual period was 08/25/2025 (approximate). Sexual activity: Social History Substance and Sexual Activity Sexual activity: Yes Partners: Male control/protection: None intention: No currently BC method: None Smoking hx: Tobacco Use: Low Risk (09/02/2025) Tobacco Smoking Tobacco Use: Never Smokeless Tobacco Use: Never Passive Exposure: Past Alcohol use hx: Social History Substance and Sexual Activity Alcohol use: Never OBHx: No obstetric history on file. IPV: Denies IPV Reviewed family hx Review of patient's family history indicates: Problem: Depression Relation: Mother Name: Age of Onset: (Not Specified) Problem: Anxiety disorder Relation: Mother Name: Age of Onset: (Not Specified) Problem: Adjustment Disorder with Mixed Anxiety and Depressed Mood Relation: Mother Name: Age of Onset: (Not Specified) Problem: Diabetes Relation: Paternal Grandmother Name: Age of Onset: (Not Specified) Health Maintenance: No results found for: HMPAP , HMMAMMO , HMCOLON Review of Systems Constitutional: Negative for appetite [...] for adenopathy. Does not bruise/bleed easily. Objective BP 126/72 Pulse 82 Temp 97.2 ??F (36.2 ??C) (Oral) Resp 20 Ht 5' 2 (1.575 m) Wt 417 lb 6.4 oz (189 kg) LMP 08/25/2025 (Approximate) SpO2 98% BMI 76.34 kg/m?? Physical Exam Vitals reviewed. Exam conducted with a supervisor brake repair present. Constitutional: Appearance: She is obese. HENT: Head: Normocephalic and atraumatic. Pulmonary: Effort: Pulmonary effort is normal. Chest: Chest wall: No deformity, tenderness or crepitus. Breasts: Breasts are symmetrical. Right: Normal. No inverted nipple, mass, nipple discharge, skin change or tenderness. Left: Normal. No inverted nipple, mass, nipple discharge, skin change or tenderness. Genitourinary: Urethra: No prolapse. Vagina: Normal. Cervix: Normal. Rectum: Normal. Musculoskeletal: Cervical back: Normal range of motion. Lymphadenopathy: Upper Body: Right upper body: No supraclavicular, axillary or pectoral adenopathy. Left upper body: No supraclavicular, axillary or pectoral adenopathy. Psychiatric: Mood and Affect: Mood normal. Assessment/Plan Problem List Items Addressed This Visit Obesity Patient currently on pharmacotherapy to assist with management of her weight. Starting weight: 438 lbs Current weight: 417 lbs Review continue lifestyle modifications. Patient was titrated up to treatment dose. Tolerated titration well. Reviewed mechanism of action with patient. Discussed side effects with patient: nausea, vomiting, diarrhea & risk of pancreatitis. Increase dose to maintenance of 5 mg, followup 2-3 months. No contraindications identified: , hx of pancreatitis, hx of medullary thyroid cancer or MEN 2. Relevant Medications Tirzepatide 5 MG/0.5ML solution auto-injector Infertility counseling Relevant Orders Referral to Infertility Pap Smear Cervical cancer screening - Primary 29 y.o. here for cervical cancer screening. Will continue monitoring following ASCCP guidelines. documented in this encounter Miscellaneous Notes * Assessment & Plan Note - Yesenia Elaine MD - 09/02/2025 11:44 AM EST Associated Problem(s): Obesity Patient currently on pharmacotherapy to assist with management of her weight. Starting weight: 438 lbs Current weight: 417 lbs Review continue lifestyle modifications. Patient was titrated up to treatment dose. Tolerated titration well. Reviewed mechanism of action with patient. Discussed side effects with patient: nausea, vomiting, diarrhea & risk of pancreatitis. Increase dose to maintenance of 5 mg, followup 2-3 months. No contraindications identified: , hx of pancreatitis, hx of medullary thyroid cancer or MEN 2. * Assessment & Plan Note - Yesenia Elaine MD - 09/02/2025 11:44 AM EST Associated Problem(s): Cervical cancer screening 29 y.o. here for cervical cancer screening. Will continue monitoring following ASCCP guidelines. documented in this encounter Plan of Treatment Upcoming Encounters Date Type Department Care Team (Late st Contact Info) Description 09/24/2025 3:45 PM EST Office Visit [facility] [address] [place] [address] Yesenia Elaine MD [address] [place] [address] Scheduled Orders Name Type Priority Associated Diagnoses Orde r Schedule Pap Smear Pathology and Cytology Routine Infertility counseling Ordered: 09/02/2025 Scheduled Referrals Name Type Priority Associated Diagnoses Order Schedule Referral to Infertility Outpatient Referral Routine Infertility counseling Expected: 09/02/2025 (Approximate), Expires: 09/02/2026 documented as of this encounter Visit Diagnoses Diagnosis Cervical cancer screening- Primary Screening for malignant neoplasm of the cervix Class 3 severe obesity with body mass index (BMI) greater than or equal to 70 in adult, unspecified obesity type, unspecified whether serious comorbidity present (HCC) Infertility counseling documented in this encounter Additional Health Concerns Assessment Noted Time PHQ-9 Depression Total Score: 4 08/11/20 10:23 AM EDT documented as of this encounter Care Teams Presser [employer] Shaper [employer] Relationship Specialty Start Date End Date Yesenia Elaine MD [address] [place] [phone] PCP - General Family Medicine 08/11/25 documented as of this encounter
--- OUTSIDE RECORDS SUMMARY | 2025-09-02 16:02 | XMS_ITS | Encounter Summary ---
Author Organization [employer] Address [address] [facility] [address] [place] [address] Care Team Providers Care Section Chief Name Role Phone Yesenia Elaine MD Primary Care Provider [phone] Encounter Details Date Type Department Care Team (Latest Contact Info) Description 08/22/2025 Results Follow-Up [facility] [address] [place] [address] Yesenia Elaine MD [address] [place] [address] Lipid Panel, Standard, CBC auto differential, Comprehensive Metabolic Panel, Additional followed-up results: 8 Social History Tobacco Use Types Packs/Day Years [...] AM EDT documented as of this encounter Plan of Treatment Upcoming Encounters Date Type Department Care Team (Late st Contact Info) Description 09/24/2025 3:45 PM EST Office Visit [facility] [address] [place] [address] Yesenia Elaine MD [address] [place] [address] Scheduled Orders Name Type Priority Associated Diagnoses Orde r Schedule TSI (Thyroid Stimulating Immunoglobulin) Lab Routine Abnormal TSH Expected: 08/22/2025 (Approximate), Expires: 08/22/2026 TRAb (TSH Receptor Binding Antibody) Lab Routine Abnormal TSH Expected: 08/22/2025 (Approximate), Expires: 08/22/2026 Thyroid Peroxidase Antibodies Lab Routine Abnormal TSH Expected: 08/22/2025 (Approximate), Expires: 08/22/2026 T4, Free Lab Routine Abnormal TSH Expected: 08/22/2025 (Approximate), Expires: 08/22/2026 TSH with Reflex to Free T4 Lab Routine Abnormal TSH Expected: 08/22/2025 (Approximate), Expires: 08/22/2026 documented as of this encounter Visit Diagnoses Diagnosis Abnormal TSH- Primary documented in this encounter Additional Health Concerns Assessment Noted Time PHQ-9 Depression Total Score: 4 08/11/20 25 10:23 AM EDT documented as of this encounter Care Teams Section Chief Relationship Specialty Start Date End Date Yesenia Elaine MD [address] [place] [address] PCP - General Family Medicine 08/11/25 documented as of this encounter
--- OUTSIDE RECORDS SUMMARY | 2025-09-02 16:02 | XMS_ITS | Encounter Summary ---
Author Organization [employer] Address [address] [facility] [address] [place] [address] Care Team Providers Care Dice Maker Name Role Phone Yesenia Elaine MD Primary Care Provider [phone] Encounter Details Date Type Department Care Team (Latest Contact Info) Description 09/01/2025 Travel Social History Tobacco Use Types Packs/Day Years [...] Description 09/24/2025 3:45 PM EST Office Visit [facility] [address] [place] [address] Yesenia Elaine MD [address] [place] [address] documented as of this encounter Visit Diagnoses Not on filedocumented in this encounter Additional Health Concerns Assessment Noted Time PHQ-9 Depression Total Score: 4 08/11/20 10:23 AM EDT documented as of this encounter Care Teams Dice Maker Relationship Specialty Start Date End Date Yesenia Elaine MD [address] [place] [address] PCP - General Family Medicine 08/11/25 documented as of this encounter
--- OUTSIDE RECORDS SUMMARY | 2025-09-02 16:02 | XMS_ITS | Encounter Summary ---
Author Organization [employer] Address [address] [facility] [address] [place] [address] Care Team Providers Care Battery Assembler Plastic Name Role Phone Yesenia Elaine MD Primary Care Provider [phone] Encounter Details Date Type Department Care Team (Latest Contact Info) Description 09/02/2025 Travel Social History Tobacco Use Types Packs/Day [...] Description 09/24/2025 3:45 PM EST Office Visit [facility] [address] [place] [address] Yesenia Elaine MD [address] [place] [address] documented as of this encounter Visit Diagnoses Not on filedocumented in this encounter Additional Health Concerns Assessment Noted Time PHQ-9 Depression Total Score: 4 08/11/20 10:23 AM EDT documented as of this encounter Care Teams Battery Assembler Plastic Relationship Specialty Start Date End Date Yesenia Elaine MD [address] [place] [address] PCP - General Family Medicine 08/11/25 documented as of this encounter
--- OUTSIDE RECORDS SUMMARY | 2025-09-02 16:02 | XMS_ITS | Clinical Summary ---
Author Organization [employer] Address [address] [place] [address] 7 [place] [address] Care Team Providers Care Resin Painter Name Role Phone Yesenia Elaine MD Primary Care Provider [phone] Allergies No known active allergies Medications albuterol 108 (90 Base) MCG/ACT inhaler Inhale 2 puffs every 4 (four) hours if needed for wheezing. 18 g 08/11/20 25 2025 Active albuterol (2.5 MG/3ML) 0.083% nebulizer solution Take 3 mL (2.5 mg) by nebulization every 6 (six) hours if needed for wheezing. 75 mL 2 08/11/20 25 Active Tirzepatide 5 MG/0.5ML solution auto-injectorI ndications:Cla ss 3 severe obesity with body mass index (BMI) greater than or equal to 70 in adult, unspecified obesity type, unspecified whether serious comorbidity present (HCC) Inject 5 mg under the skin 1 (one) time per week. 2 mL 3 09/02/20 25 Active albuterol (2.5 MG/3ML) 0.083% nebulizer solution INHALE 1 VIAL VIA NEBULIZER EVERY 6 HOURS NEEDED FOR WHEEZING 2024 Discontinued(R eorder (will not trigger notification to Pharmacy)) Tirzepatide-We ight Management (Zepbound) 2.5 MG/0.5ML solution auto-injectorI ndications:Cla ss 3 severe obesity with body mass index (BMI) greater than or equal to 70 in adult, unspecified obesity type, unspecified whether serious comorbidity present (HCC) Inject 0.5 mL (2.5 mg) under the skin 1 (one) time per week. 2 mL 1 08/11/20 25 2024 Discontinued(T herapy completed) Active Problems Problem Noted Date Diagnosed Date Infertility counseling 09/02/2025 Cervical cancer screening 09/02/2025 Assessment & Plan (09/02/2025 11:44 AM EST): 29 y.o. here for cervical cancer screening. Will continue monitoring following ASCCP guidelines. Asthma 08/11/2025 Overview (08/11/2025): Whole life Obesity 08/11/2025 Overview (08/11/2025): Whole life Assessment & Plan (09/02/2025 11:45 AM EST): Patient currently on pharmacotherapy to assist with [...] of medullary thyroid cancer or MEN 2. Encounters Date Type Department Care Team Description 09/02/2025 11:00 AM EST Procedure Visit [facility] [address] [place] [address] Yesenia Elaine MD Cervical cancer screening (Primary Dx); Class 3 severe obesity with body mass index (BMI) greater than or equal to 70 in adult, unspecified obesity type, unspecified whether serious comorbidity present (HCC); Infertility counseling 09/02/2025 Travel 09/01/2025 Travel 08/22/2025 Results Follow-Up [facility] [address] [place] [address] Yesenia Elaine MD Lipid Panel, Standard, CBC auto differential, Comprehensive Metabolic Panel, Additional followed-up results: 8 08/21/2025 Orders Only [facility] [address] [place] [address] Yesenia Elaine MD 08/11/2025 9:30 AM EDT Office Visit [facility] [address] [place] [address] Yesenia Elaine MD Encounter for immunization (Primary Dx); Dietary counseling; Exercise counseling; Class 3 severe obesity with body mass index (BMI) greater than or equal to 70 in adult, unspecified obesity type, unspecified whether serious comorbidity present (HCC); Encounter for health-related screening; Abnormal uterine bleeding (AUB) 08/11/2025 Travel 08/10/2025 Travel 08/08/2025 Telephone [facility] [address] [place] [address] Emily Solorio MA Chart Prep 08/01/2025 Patient Outreach [facility] [address] [place] [phone] Yesenia Elaine MD Care Coordination (CHW outreach for SDOH housing search-referral completed ) 08/01/2025 Patient Outreach [facility] [address] [place] [phone] Jose Marin MD Pre-visit Planning (SDOH screening [...] Mass Index 76.34 09/02/2025 10:55 AM EST Plan of Treatment Upcoming Encounters Date Type Department Care Team ([facility] st Contact Info) Description 09/24/2025 3:45 PM EST Office Visit [facility] [address] [place] [address] Yesenia Elaine MD [address] [place] [address] Health Maintenance Due Date Last Done Comments HPV Vaccines (3 - 2-dose series) 12/20/2011 09/27/2011, 05/25/2011 Family Planning (PISQ) 2012 Pap Smear 2018 Alcohol/Substance Use Screening 08/11/2026 08/11/2025 Depression Screening 08/11/2026 08/11/2025, 08/11/20 25 Disability Screening 08/11/2026 08/11/2025 SDOH Screening 08/11/2026 08/11/2025 Tobacco Screening 09/02/2026 09/02/2025 Lipid Panel 08/21/2030 08/21/2025 DTaP/Tdap/Td Vaccines (9 - Td or Tdap) [...] complete this topic COVID-19 Vaccine Completed 07/23/2025, 06/2024, 08/24/2023, Additional history exists Influenza Vaccine Completed 07/24/2025, , 08/10/2023, Additional history exists Pneumococcal Vaccine: Pediatrics (0 to 5 Years) and At-Risk Patients (6 to 49) Years Completed 08/11/2025, 01/05/2018 HIV Screening Completed 08/21/2025 Hepatitis C Screening Completed 08/21/2025 Hepatitis A Vaccines Aged Out No long [...] on patient's age to complete this topic Procedures Procedure Name Priority Date/Time Associated Diagnosis Comments T4, FREE Routine 08/21/2025 9:52 AM EDT ANDROSTENEDIONE Routine 08/21/2025 9:52 AM EDT Abnormal uterine bleeding (AUB) SEX HORMONE BINDING GLOBULIN Routine 08/21/2025 9:52 AM EDT Abnormal uterine bleeding (AUB) DHEA SULFATE Routine 08/21/2025 9:52 AM EDT Abnormal uterine bleeding (AUB) TESTOSTERONE, FREE (DIALYSIS) AND TOTAL,MS Routine 08/21/2025 9:52 AM EDT Abnormal uterine bleeding (AUB) VARICELLA ZOSTER ANTIBODY, IGG Routine 08/21/2025 9:52 AM EDT Encounter for immunization MEASLES, MUMPS, AND RUBELLA (MMR) AB (IGG) PANEL, IMMUNE STATUS Routine 08/21/2025 9:52 AM EDT Encounter for immunization HEPATITIS C AB W/REFL TO HCV RNA, QN, PCR Routine 08/21/2025 9:52 AM EDT Encounter for health-related screening HIV 1/2 ANTIGEN/ANTIBODY, FOURTH GENERATION W/RFL Routine 08/21/2025 9:52 AM EDT Encounter for health-related screening TSH W/REFLEX TO FT4 Routine 08/21/2025 9 :52 AM EDT Class 3 severe obesity with body mass index (BMI) greater than or equal to 70 in adult, unspecified obesity type, unspecified whether serious comorbidity present (HCC) INSULIN Routine 08/21/2025 9:52 AM EDT Class [...] type, unspecified whether serious comorbidity present (HCC) CBC WITH AUTO DIFFERENTIAL Routine 08/21/2025 9:52 AM EDT Class 3 severe obesity with body mass index (BMI) greater than or equal to 70 in adult, unspecified obesity type, unspecified whether serious comorbidity present (HCC) LIPID PANEL, STANDARD Routine 08/21/2025 9:52 AM EDT Class 3 severe obesity with body mass index (BMI) greater than or equal to 70 in adult, unspecified obesity type, unspecified whether serious comorbidity present (HCC) from Last 3 Months Results * (ABNORMAL) TSH W/Reflex to FT4 (08/21/2025 9:52 AM EDT) TSH reflex Free T4 4.70(H) 0.32 - 4.0 uIU/mL [facility] Blood Venous blood specimen / Unknown 08/21/2025 9:52 AM EDT 08/21/2025 2:23 PM EDT us Yesenia Elaine MD LAB BLOOD ORDERABLES Final Re sult [facility] [address] [place] [address] [phone] * (ABNORMAL) Measles, Mumps, and Rubella (MMR) Antibodies??(IgG) Panel, Immune Status (08/21/2025 9:52 AM EDT) Pathologist [facility] Mumps Virus IgG Antibody <9.00(A) AU/mL [facility] Comment:AU/mL Interpretation ------- <9.00 Not consistent with immunity9.00-10.99 Equivocal>10.99 Consistent with immunityThe presence of mumps IgG antibody suggests immunizationor past or current infection with mumps virus. Rubella IgG Antibody 1.75 Index [facility] Comment:Index Interpretation ----- <0.90 Not consistent with immunity 0.90-0.99 Equivocal > or = 1.00 Consistent with immunityThe presence of rubella IgG antibody suggestsimmunization or past or current infection withrubella virus.THIS TEST WAS PERFORMED AT:[facility] [place] [phone] SYLVESTER MD Rubeola IgG (Measles) 87.10 AU/mL [facility] Comment:AU/mL Interpretation ----- <13.50 Not consistent with vhawitxt22.50-16.49 Equivocal>16.49 Consistent with immunityThe presence of measles IgG suggests immunization orpast or current infection with measles virus.For additional information, please refer tohttp://education.[employer]/faq/XAD933(This link is being provided for informational/educational purposes only.) Blood 08/21/2025 9:52 AM EDT 08/21/2025 2:23 PM EDT us Yesenia Elaine MD LAB BLOOD ORDERABLES Final Re sult Performing Organization Address [facility]/ZIP Co de Phone Number [facility] [address] [place] [phone] * (ABNORMAL) Sex Hormone Binding Globulin (SHBG) (08/21/2025 9:52 AM EDT) Sex Hormone Binding Globulin 14(A) 17 - 124 nmol/L [facility] Comment:THIS TEST WAS PERFOR MED AT:[email or web address] [address] [phone] SYLVESTER MD Blood Venous blood specimen / Unknown 08/21/2025 9:52 AM EDT 08/21/2025 2:16 PM EDT us Yesenia Elaine MD LAB BLOOD ORDERABLES Final Re sult Performing Organization Address [facility] de Phone Number [facility] [address] [place] [phone] * (ABNORMAL) CBC auto differential (08/21/2025 9:52 AM EDT) White Blood Count 7.4 4.8 - 10.8 X10*3/uL [facility] Red Blood Count 4.69 4.20 - 5.50 X10*6/uL [facility] Hemoglobin 13.3 12.0 - 16.0 g/dl [facility] Hematocrit 42.5 37.0 - 47.0 % [facility] Mean Corpuscular Volume 90.6 80.0 - 98.0 fL [facility] Mean Corpuscular Hemoglobin 28.4 27.0 - 33.0 pg [facility] Mean Corpuscular HGB Conc 31.3 31.0 - 35.0 g/dl [facility] Red Cell Distribution Width 12.8 11.0 - 16.0 % [facility] Platelet Count 290 160 - 400 X10*3/uL [facility] Mean Platelet Volume 11.2 9.4 - 12.3 fL [facility] Neutrophils Percent Auto 53.6 45 - 73 % [facility] Imm Gran Pct Auto 0.4 0.0 - 0.4 % [facility] Lymphocytes Percent Auto 33.5 20 - 40 % [facility] Monocytes Percent Auto 5.4 2 - 11 % [facility] Eosinophils Percent Auto 7.0(H) 0 - 4 % [facility] Basophils Percent Auto 0.1 0 - 2 % [facility] NRBC Pct Auto 0.0 0.0 - 0.2 /100WBC [facility] Neutrophils Absolute Auto 4.0 2.0 - 8.3 x10*3/uL [facility] Imm Gran Abs Auto 0.03 0.00 - 0.03 X10*3/uL [facility] Lymphocytes Absolute Auto 2.5 1.2 - 4.9 X10*3/uL [facility] Monocytes Absolute Auto 0.4 0.1 - 1.2 X10*3/uL [facility] Eosinophils Absolute Auto 0.5(H) 0.0 - 0.4 X10*3/uL [facility] Basophils Absolute Auto 0.0 0.0 - 0.2 X10*3/uL [facility] NRBC Abs Auto 0.000 0.0 - 0.012 X10*3/uL [facility] Blood Venous blood specimen / Unknown 08/21/2025 9:52 AM EDT 08/21/2025 2:16 PM EDT us Yesenia Elaine MD LAB BLOOD ORDERABLES Final Re sult [facility] [address] [place] [phone] * Hepatitis C Antibody with Reflex to HCV, RNA, Quantitative, Real-Time PCR (08/21/2025 9:52 AM EDT) Pathologist [facility] Hepatitis C Antibody Nonreactive Nonreactive [facility] Comment:Antibodies to HCV no t detected; does not exclude early acuteHCV infection. Blood Venous blood specimen / Unknown 08/21/2025 9:52 AM EDT 08/21/2025 2:23 PM EDT Yesenia Elaine MD LAB BLOOD ORDERABLES Final Re sult Performing Organization Address [facility]/ZIP Co de Phone Number [facility] [address] [place] [phone] * Insulin (08/21/2025 9:52 AM EDT) Pathologist [facility] Insulin 18 2 - 29 uU/mL [facility] Comment:This test was perfor med using the [employer] chemiluminescentmethod. Values obtained from different assay methods [...] MD LAB BLOOD ORDERABLES Final Re sult [facility] [address] [place] [phone] * (ABNORMAL) DHEA Sulfate (08/21/2025 9:52 AM EDT) Pathologist [facility] DHEA Sulfate 406(A) 14 - 349 mcg/dL [facility] Comment:THIS TEST WAS PERFOR MED AT:[facility] [place] [id number] SYLVESTER MD Blood Venous blood specimen / Unknown 08/21/2025 9:52 AM EDT 08/21/2025 2:16 PM EDT Yesenia Elaine MD LAB BLOOD ORDERABLES Final Re sult Performing Organization Address [facility] Co de Phone Number [facility] [address] [place] [phone] [phone] * Androstenedione (08/21/2025 9:52 AM EDT) Androstenedione 65 ng/dL [facility] Comment:Adult Female Referen ce Ranges for Androstenedione: Mid Follicular: 51- 213 ng/dL Surge: 73-230 ng/dL Mid Luteal: 73-184 ng/dL Postmenopausal Phase: 20-75 ng/dLThis test was developed and its analytical performancecharacteristics have been determined by [employer].It has not been cleared or approved by the FDA. This assayhas been validated pursuant to the CLIA regulations and isused for clinical purposes.THIS TEST WAS PERFORMED AT:[email or web address] [facility] [place] [address]XUZGUELAINE GAONA MD,PHD,TOSIN Blood Venous blood specimen / Unknown 08/21/2025 9:52 AM EDT 08/21/2025 2:16 PM EDT Yesenia Elaine MD LAB BLOOD ORDERABLES Final Re sult Performing Organization Address [facility] Co de Phone Number [facility] [address] [place] [phone] * HIV-1/2 Antigen and Antibodies, Fourth Generation, with Reflexes (08/21/2025 9:52 AM EDT) HIV AB/AG Nonreactive Nonreactive [facility] Comment:HIV-1 p24 Ag and/or HIV-1/HIV-2 Ab not detected.A test result that is nonreactive does not exclude thepossibility of exposure to or infection with HIV-1 and/orHIV-2. Nonreactive results in this assay for individualswith prior exposure to HIV-1 and/or HIV-2 may be due toantigen and antibody levels that are below the limit ofdetection of this assay.The [employer] Alinity HIV Ag/Ab Combo assay result andsupplemental assay results should be interpreted inconjunction with the patient's clinical presentation,history and other laboratory results. If the results areinconsistent with clinical evidence, additional testing issuggested to confirm the result. Blood Venous blood specimen / Unknown 08/21/2025 9:52 AM EDT 08/21/2025 2:23 PM EDT us Yesenia Elaine MD LAB BLOOD ORDERABLES Final Re sult [facility] [address] [place] [phone] * Testosterone, Free (Dialysis) And Total, MS (08/21/2025 9:52 AM EDT) Testosterone, Total 21 2 - 45 ng/dL [facility] Comment:For additional infor jasson, please refer tohttp://education.[employer]/faq/GlmdaLxedwuaznoysRXQWJWSPF243(This link is being provided for informational/educational purposes only.)This test was developed and its analytical performancecharacteristics have been determined by [employer] [place], [place]. It hasnot been cleared or approved by the U.S. Food and DrugAdministration. This assay has been validated pursuantto the CLIA regulations and is used for clinicalpurposes. Testosterone, Free 3.6 0.1 - 6.4 pg/mL [facility] Comment:This test was develo ped and its analytical performancecharacteristics have been determined by [employer] [place], [place]. It hasnot been cleared or approved by the U.S. Food and DrugAdministration. This assay has been validated pursuantto the CLIA regulations and is used for clinicalpurposes.THIS TEST WAS PERFORMED AT:[email or web address] [place] [address]OCWDCEOCALLIE ARRINGTON MD,PHD Blood Venous blood specimen / Unknown 08/21/2025 9:52 AM EDT 08/21/2025 2:16 PM EDT Yesenia Elaine MD LAB BLOOD ORDERABLES Final Re sult Performing Organization Address [facility] de Phone Number [facility] [address] [place] [phone] * Varicella Zoster Antibody, IgG (08/21/2025 9:52 AM EDT) [facility] Varicella IgG Antibody 13.10 S/CO [facility] Comment:Signal to Cut-off S/ CO [...] Antibody Immunity Screen, ACIF.THIS TEST WAS PERFORMED AT:[email or web address] [address] [phone] SYLVESTER MD Blood Venous blood specimen / Unknown 08/21/2025 9:52 AM EDT 08/21/2025 2:23 PM EDT Yesenia Elaine MD LAB BLOOD ORDERABLES Final Re sult Performing Organization Address [facility] Co de Phone Number [facility] [address] [place] [phone] * T4, Free (08/21/2025 9:52 AM EDT) Free T4 (Free Thyroxine) 0.96 0.71 - 1.85 ng/dL [facility] 08/21/2025 9:52 AM EDT 08/21/2025 2:23 PM EDT Yesenia Elaine MD LAB BLOOD ORDERABLES Final Re sult Performing Organization Address [facility] Co de Phone Number [facility] [address] [place] [phone] * Lipid Panel, Standard (08/21/2025 9:52 AM EDT) Triglycerides 95 <150 mg/dL [facility] Comment:Desirable Triglyceri de: less than 150 mg/dLBorderline High Triglyceride 150-199 mg/dLHigh Triglyceride: 200-499 mg/dLVery High Triglyceride: greater than or equal to 5OO mg/dL Cholesterol 154 <200 mg/dL [facility] Comment:Desirable Cholestero l: less than 200 mg/dLBorderline High Cholesterol: 200-239 mg/dLHigh Cholesterol: greater than 239 mg/dL LDL Cholesterol Calculated 90 <100 mg/dL [facility] Comment:Desirable LDL: less than 100 mg/dLNear Optimal/Above Optimal LDL: 110- 129 mg/dLBorderline High LDL: 130-159 mg/dLHigh LDL: 160-189 mg/dLVery High LDL: greater than or equal to 190 mg/dL HDL Cholesterol 45 >40 mg/dL [facility] Comment:Desirable HDL: great er than 40 mg/dL Note: This HDL assay may give artificially low results in patients with liver disease. Blood Venous blood specimen / Unknown 08/21/2025 9:52 AM EDT 08/21/2025 2:23 PM EDT us Yesenia Elaine MD LAB BLOOD ORDERABLES Final Re sult Performing Organization Address City/[facility]/ZIP Co de Phone Number [facility] [address] [place] [phone] * (ABNORMAL) Comprehensive Metabolic Panel (08/21/2025 9:52 AM EDT) Sodium 141 135 - 145 mmol/L [facility] Potassium 4.0 3.3 - 5.1 mmol/L [facility] Chloride 106 96 - 108 mmol/L [facility] Carbon Dioxide 28 22 - 29 mmol/L [facility] Anion Gap 11(L) 12 - 20 [facility] Urea Nitrogen (BUN) 18(H) 9 - 16 mg/dL [facility] Creatinine, Serum 0.49(L) 0.5 - 1.4 mg/dL [facility] Estimated Glomerular Filt Rate >60 [facility] Comment:Chronic Kidney Disea se: Estimated GFR < 60 mL/min/[id number] Kidney Disease: Estimated GFR < 15 mL/min/1.73m2 Glucose 89 60 - 115 mg/dL [facility] Calcium 9.2 8.4 - 10.2 mg/dL [facility] Bilirubin, Total 0.4 0.0 - 1.0 mg/dL [facility] Aspartate Amino Transferase 27 5 - 31 U/L [facility] Alanine Aminotransferase 31 0 - 31 U/L [facility] Total Protein 7.5 6.5 - 8.0 g/dL [facility] Albumin Level 4.5 3.5 - 5.0 g/dL [facility] Alkaline Phosphatase 63 39 - 117 U/L [facility] Blood Venous blood specimen / Unknown 08/21/2025 9:52 AM EDT 08/21/2025 2:23 PM EDT us Yesenia Elaine MD LAB BLOOD ORDERABLES Final Re sult [facility] [address] [place] [phone] from Last 3 Months Insurance * Guarantor: Gely Griffiths Account Type Relation to Patient Date of Phone Billing Address Personal/Family Self [address] [place] [phone] [facility] , [address] [place] [address] Care Teams Resin Painter Relationship Specialty Start Date End Date Yesenia Elaine MD [address] [place] [address] PCP - General Family Medicine 08/11/25
== END 2025-09-02 14:22 | disposition home or self-care (01) ==
LOC: HO.LNP 14:21
PROVIDERS: Visit Provider Family Medicine
DX: Z31.69 Encounter for other general counseling and advice on procreation (principal)
CPT/HCPCS: 88175

== ENCOUNTER 2025-09-29 13:21 | Outpatient (REF) | payer OTHER, SELFPAY ==
--- OUTSIDE RECORDS SUMMARY | 2025-09-24 15:45 | XMS_ITS | Encounter Summary ---
Author Organization [employer] Address [address] [place] [address] [address] [place] [address] Care Team Providers Care Mill [employer] Name Role Phone Yesenia Elaine MD Primary Care Provider [phone] Reason for Referral * Medications - Closed Specialty Diagnoses / Procedures Referred By Tyler t Referred To Contact Diagnoses Class 3 severe obesity with body mass index (BMI) greater than or equal to 70 in adult, unspecified obesity type, unspecified whether serious comorbidity present (HCC) Yesenia Elaine MD [address] [place] [address] Phone: tel: fax: Referral ID Status Reason Start Date Expiration Date Visits Re quested Visits Authorized [id number] Closed 1 1 Reason for Visit * Reason Comments Weight Management Encounter Details Date Type Department Care Team ([facility] Contact Info) Description 09/24/2025 3:45 PM EST Office Visit [facility] [address] [place] [address] Yesenia Elaine MD [address] [place] [address] PCOS (polycystic ovarian syndrome) (Primary Dx); Class 3 severe obesity with body mass index (BMI) greater than or equal to 70 in adult, unspecified obesity type, unspecified whether serious comorbidity present (HCC); Encounter for immunization Social History Tobacco Use Types Packs/Day Years [...] Sign Reading Time Taken Comments Blood Pressure 126/78 09/24/2025 3:48 PM EST Pulse 78 09/24/2025 3:48 PM EST Temperature 36.9 C (98.4 F) 09/24/2025 3:48 PM EST Respiratory Rate 20 09/24/2025 3:48 PM EST Oxygen Saturation 98% 09/24/2025 3:48 PM EST Inhaled Oxygen Concentration - - Weight 190 kg (418 lb 9.6 oz) 09/24/2025 3:48 PM EST Height 157.5 cm (5' 2 ) 09/24/2025 3:48 PM EST Body Mass Index 76.56 09/24/2025 3:48 PM EST documented in this encounter Progress Notes * Yesenia Elaine MD - 09/24/2025 3:45 PM EST Subjective Patient ID: Gely Griffiths is a 30 y.o. female who presents for Weight Management. Gely Griffiths is a female patient with PCOS presenting for follow-up care regarding weight management. She took her second dose of medication two weeks ago on Monday and reports her weight has remained stable with a gain of one pound.The patient expressed interest in future planning. Immunizations - HPV: Patient reports vaccination is up-to-date - MMR: Patient is immune to rubella and rubeola but not to mumps Review of Systems Objective BP 126/78 Pulse 78 Temp 98.4 ??F (36.9 ??C) (Oral) Resp 20 Ht 5' 2 (1.575 m) Wt 418 lb 9.6 oz (190 kg) LMP 08/25/2025 (Approximate) SpO2 98% BMI 76.56 kg/m?? Physical Exam Constitutional: General: She is not [...] Items Addressed This Visit Obesity Relevant Medications Tirzepatide 5 MG/0.5ML solution auto-injector PCOS (polycystic ovarian syndrome) - Primary Relevant Medications Tirzepatide 5 MG/0.5ML solution auto-injector Other Visit Diagnoses Encounter for immunization Relevant Orders MMR VACCINE 12 mo + (Completed) Gely Griffiths is a female patient with PCOS being managed for weight loss and family planning considerations. PCOS Assessment: Labs are consistent with PCOS diagnosis. PCOS affects weight management and increases diabetes risk through insulin resistance. Ultrasound scheduled to confirm presence of PCOS cysts. Patient desires future , which will require specialized reproductive endocrinology management given PCOS- related fertility challenges. Plan: - Ultrasound scheduled for Monday to confirm PCOS cysts - Weight loss management through carbohydrate reduction to address insulin resistance - Inositol supplementation to regulate menstrual periods and improve egg quality - Reproductive endocrinology referral when patient ready for - Prenatals to be initiated when actively trying to conceive - Partner evaluation recommended when attempting conception Weight management Assessment: Weight stable with one-pound gain since last visit. Patient started second dose of weight loss medication two weeks ago on Monday. Goal is gradual weight loss of one to two pounds per week. Monitoring period needed to assess for side effects given recent medication initiation. Plan: - Continue current weight loss medication, monitor for side effects given two- week timeframe - will increase dose of zepbound to 7.5 mg - Follow-up scheduled for November 17 at 11:30 AM (approximately two months) - Weight loss goal 5-10% in 3 months. Thyroid abnormality Assessment: TSH slightly elevated on recent labs. Thyroid antibody testing needed to evaluate for autoimmune thyroid conditions such as Autumn's thyroiditis. Plan: - Thyroid labs ordered to check for antibodies including Autumn's evaluation MMR immunity status Assessment: Patient immune to rubella and rubeola components of MMR vaccine but not immune to mumps. MMR vaccination needed at least three months prior to attempts for optimal protection. Plan: - MMR vaccine administration recommended - Timing requirement: at least 3 months before attempting - Vaccine can be administered today if patient desires documented in this encounter Plan of Treatment Upcoming Encounters Date Type Department Care Team (Late st Contact Info) Description 11/17/2025 11:30 AM EST Office Visit [facility] [address] [place] [address] Yesenia Elaine MD [address] [place] [address] documented as of this encounter Visit Diagnoses Diagnosis PCOS (polycystic ovarian syndrome)- Primary Polycystic ovaries Class 3 severe obesity with body mass index (BMI) greater than or equal to 70 in adult, unspecified obesity type, unspecified whether serious comorbidity present (HCC) Encounter for immunization documented in this encounter Additional Health Concerns Assessment Noted Time PHQ-9 Depression Total Score: 4 10/20/20 25 10:23 AM EDT documented as of this encounter Care Teams Mill [employer] Relationship Specialty Start Date End Date Yesenia Elaine MD [address] [place] [id number] PCP - General Family Medicine 08/11/25 documented as of this encounter
--- NOTE | ~2025-09-29 | US_ITS ---
CLINICAL HISTORY: 29 yo F with a hx of AUB, with PCOS stigmata, send to [facility] US pelvis transabdominal and transvaginal Comparison: None provided Findings: Transabdominal scanning performed for overall anatomy. Transvaginal scanning performed for additional detail. Anteverted uterus is 8 cm length. Normal myometrium. Endometrium 3.7 mm thickness. No lesions. There are multiple nabothian cysts within the cervix. Right ovary 2 x 1.8 x 1.7 cm. Left ovary 3.3 x 2.7 x 3.5 cm. There is a 2.7 x 2.7 x 2.0 cm simple cyst within the left ovary. No ultrasound findings to suggest polycystic ovarian syndrome. Normal color Doppler of both ovaries. No free fluid. IMPRESSION: 1. 2.7 cm simple cyst within the left ovary compatible with a physiologic cyst. This document has been electronically signed by: Cheri Nicholas MD on 09/30/2025 16:52:14
--- OUTSIDE RECORDS SUMMARY | 2025-09-29 22:00 | XMS_ITS | Encounter Summary ---
Author Organization [employer] Address [address] [facility] [address] [place] [address] Care Team Providers Care Head Of Music Name Role Phone Yesenia Elaine MD Primary Care Provider [phone] Encounter Details Date Type Department Care Team (Latest Contact Info) Description 08/22/2025 Results Follow-Up [facility] [address] [place] [address] Yesenia Elaine MD [address] [place] [address] Lipid Panel, Standard, CBC auto differential, Comprehensive [...] Description 11/17/2025 11:30 AM EST Office Visit [facility] [address] [place] [address] Yesenia Elaine MD [address] [place] [address] Scheduled Orders Name Type Priority Associated Diagnoses [...] documented as of this encounter Care Teams Head Of Music Relationship Specialty Start Date End Date Yesenia Elaine MD [address] [place] [address] PCP - General Family Medicine 08/11/25 documented as of this encounter
--- OUTSIDE RECORDS SUMMARY | 2025-09-29 22:00 | XMS_ITS | Clinical Summary ---
Author Organization [employer] Address [address] [place] [address] 7 [place] [address] Care Team Providers Care Rn International Name Role Phone Yesenia Elaine MD Primary Care Provider [phone] Allergies No known active allergies Medications albuterol [...] (one) time per week. 2 mL 3 09/24/20 25 Active Tirzepatide-We ight Management (Zepbound) 2.5 MG/0.5ML solution auto-injectorI ndications:Cla ss 3 severe obesity with body mass index (BMI) greater than or equal to 70 in adult, unspecified obesity type, unspecified whether serious comorbidity present (HCC) Inject 0.5 mL (2.5 mg) under the skin 1 (one) time per week. 2 mL 1 08/11/20 25 2024 Discontinued(T herapy completed) Tirzepatide 5 MG/0.5ML solution auto-injectorI ndications:Cla ss 3 severe obesity with body mass index (BMI) greater than or equal to 70 in adult, unspecified obesity type, unspecified whether serious comorbidity present (HCC) Inject 5 mg under the skin 1 (one) time per week. 2 mL 3 09/02/20 25 2024 Discontinued(R eorder (will not trigger notification to Pharmacy)) Zepbound 5 MG/0.5ML solution auto-injector ADMINISTER 5 MG UNDER THE SKIN 1 TIME EVERY WEEK 09/04/202024 Discontinued(T herapy completed) Active Problems Problem Noted Date Diagnosed Date PCOS (polycystic ovarian syndrome) 09/24/2025 Infertility counseling 09/02/2025 Cervical cancer screening 09/02/2025 [...] Encounters Date Type Department Care Team Description 09/24/2025 3:45 PM EST Office Visit [facility] [address] [place], [place] [phone] Yesenia Elaine MD PCOS (polycystic ovarian syndrome) (Primary Dx); Class 3 severe obesity with body mass index (BMI) greater than or equal to 70 in adult, unspecified obesity type, unspecified whether serious comorbidity present (HCC); Encounter for immunization 09/24/2025 Travel 09/23/2025 Travel 09/23/2025 Telephone [facility] [address] [place] [address] Yesenia Elaine MD chart prep 09/10/2025 Results Follow-Up [facility] [address] [place] [address] Yesenia Elaine MD Pap Smear 09/02/2025 11:00 AM EST Procedure Visit [facility] [address] [place] [address] Yesenia Elaine MD Cervical cancer screening (Primary Dx); Class 3 severe obesity with body mass index (BMI) greater than or equal to 70 in adult, unspecified obesity type, unspecified whether serious comorbidity present (HCC); Infertility counseling 09/02/2025 Travel 09/01/2025 Travel 08/22/2025 Results Follow-Up [facility] [address] [place] [address] Yesenia Elaine MD Lipid Panel, Standard, CBC auto differential, Comprehensive Metabolic Panel, Additional followed-up results: 8 08/21/2025 Orders Only [facility] [address] [place] [address] Yesenia lEaine MD 08/11/2025 9:30 AM EDT Office Visit [facility] [address] [place] [address] eYsenia Elaine MD Encounter for immunization (Primary Dx); Dietary counseling; Exercise counseling; Class 3 severe obesity with body mass index (BMI) greater than or equal to 70 in adult, unspecified obesity type, unspecified whether serious comorbidity present (HCC); Encounter for health-related screening; Abnormal uterine bleeding (AUB) 08/11/2025 Travel 08/10/2025 Travel 08/08/2025 Telephone [facility] [address] [place] [address] Emily Solorio MA Chart Prep 08/01/2025 Patient Outreach [facility] [address] [place] [address] [phone] Yesenia Elaine MD Care Coordination (CHW outreach for SDOH housing search-referral completed ) 08/01/2025 Patient Outreach [facility] [address] [place] [phone] Jose Marin MD Pre-visit Planning (SDOH screening positive and Tobacco screening negative) from Last 3 Months Immunizations Immunization Administration Dates Next Due DTaP 06/27/2003, 9,04/30/1998,02/12,1997 HPV, Quadrivalent 09/27/2011 HPV, Unspecified 05/25/2011 Hep B, Adolescent or Pediatric 07/01/1998,1996,1997 Hib ([facility]) 12/16/1998, 8,02/12/1998,12/17 Influenza injectable quadriv alent IIV4 with preservative 08/10/2023,07/08/2022 Influenza, IIV3, injectable 07/24/2025, 4 MMR 09/24/2025,06/27/2003,12/16/1998 Meningococcal B, Unspecified 03/24/2011 Moderna Covid-19 Vaccine 12+ 07/31/2024,08/24/20 23,08/30/2021 Moderna Covid-19 mNexspike Vaccine 12+ 5 OPV, Trivalent 06/30/2003, 9,02/12/1998,12/17 Pneumococcal Conjugate PCV [...] Mass Index 76.56 09/24/2025 3:48 PM EST Plan of Treatment Upcoming Encounters Date Type Department Care Team (Late st Contact Info) Description 11/17/2025 11:30 AM EST Office Visit [facility] [address] [place] [address] Yesenia Elaine MD [address] [facility] [place] [address] Health Maintenance Due Date Last Done Comments Family Planning (PISQ) 2012 Alcohol/Substance Use Screening 08/11/2026 08/11/2025 Depression Screening 08/11/2026 08/11/2025, 08/11/20 Disability Screening 08/11/2026 08/11/2025 SDOH Screening 08/11/2026 08/11/2025 Tobacco Screening 09/24/2026 09/24/2025 Pap Smear 09/02/2028 09/02/2025 Lipid Panel 08/21/2030 08/21/2025 DTaP/Tdap/Td Vaccines [...] on patient's age to complete this topic HPV Vaccines Discontinued 09/27/2011, 05/25/2011 COVID-19 Vaccine Completed 07/23/2025, 06/2024, 08/24/2023, Additional [...] Procedure Name Priority Date/Time Associated Diagnosis Comments PAP SMEAR Routine 09/02/2025 11:30 AM EST Infertility counseling T4, FREE Routine 08/21/2025 9:52 AM EDT ANDROSTENEDIONE Routine 08/21/2025 9:52 AM EDT Abnormal uterine bleeding (AUB) SEX HORMONE BINDING GLOBULIN Routine 08/21/2025 9:52 AM EDT Abnormal uterine bleeding (AUB) DHEA SULFATE Routine 08/21/2025 9:52 AM EDT Abnormal uterine bleeding (AUB) TESTOSTERONE, FREE, BIOAVAILABLE AND TOTAL, MALES (ADULT), IA Routine 08/21/2025 9:52 AM EDT Abnormal uterine [...] (HCC) from Last 3 Months Results * Pap Smear (09/02/2025 11:30 AM EST) Swab Cervical swab / Unknown 09/02/2025 11:30 AM EST 09/03/2025 12:40 PM EST [facility] - 09/08/2025 1:51 PM EST ----- ------- Name: Gely Griffiths Age/Sex: / : 1995 Unit#: [id number] Attend Dr: Yesenia Elaine MD Re09/02/25 Status: DEP REF Location: LNP Disch: ----- ------- SPEC : [id number] RECD: 09/03/25-1240 STATUS: KRYSTEN MERCADO NUM: [id number] TALIA: 09/02/25-[address] [facility] [address]: Yesenia Elaine MD ENTERED: 09/03/25-1313 SP TYPE: Pap Smr OTHR DR: ORDERED: Pap Smear Interpretation Satisfactory for evaluation. Negative for intraepithelial lesion or malignancy. Clinical Information LMP: 08/25/2025 Previous PAP test: Other surgery: Other history: Material Received ThinPrep-Cervix ----- ------- Signed (signature on file) JOHN Soliz (ASC) 09/08/25 1351 ----- ------- END OF REPORT us Yesenia Elaine MD LAB CYTOLOGY ORDERABLES Final Result Performing Organization Address [facility]/ZIP Co de Phone Number [facility] [address] [place] [address] [phone] * (ABNORMAL) TSH W/Reflex to FT4 (08/21/2025 9:52 AM EDT) TSH reflex Free T4 4.70(H) 0.32 - 4.0 uIU/mL [facility] Blood Venous blood specimen / Unknown 08/21/2025 9:52 AM EDT 08/21/2025 2:23 PM EDT Yesenia Elaine MD LAB BLOOD ORDERABLES Final Re sult Performing Organization Address [facility]/ZIP Co de Phone Number [facility] [address] [place] [address] [phone] * (ABNORMAL) Measles, Mumps, and Rubella (MMR) Antibodies??(IgG) Panel, Immune Status (08/21/2025 9:52 AM EDT) Mumps Virus IgG Antibody <9.00(A) AU/mL [facility] Comment:AU/mL Interpretation ------- <9.00 Not consistent with immunity9.00-10.99 Equivocal>10.99 Consistent with immunityThe presence of mumps IgG antibody suggests immunizationor past or current infection with mumps virus. Rubella IgG Antibody 1.75 Index [facility] Comment:Index Interpretation ----- <0.90 Not consistent with immunity 0.90-0.99 Equivocal > or = 1.00 Consistent with immunityThe presence of rubella IgG antibody suggestsimmunization or past or current infection withrubella virus.THIS TEST WAS PERFORMED AT:[facility] [place] [id number] SYLVESTER MD Rubeola IgG (Measles) 87.10 AU/mL [facility] Comment:AU/mL Interpretation ----- <13.50 Not consistent with gpmakmwb78.50-16.49 Equivocal>16.49 Consistent with immunityThe presence of measles IgG suggests immunization orpast or current infection with measles virus.For additional information, please refer [email or web address]faq/[email or web address](This link is being provided for informational/educational purposes only.) Blood 08/21/2025 9:52 AM EDT 08/21/2025 2:23 PM EDT Yesenia Elaine MD LAB BLOOD ORDERABLES Final Re sult Performing Organization Address [facility] Co de Phone Number [facility] [address] [place] [phone] * (ABNORMAL) Sex Hormone Binding Globulin (SHBG) (08/21/2025 9:52 AM EDT) Pathologist [facility] Sex Hormone Binding Globulin 14(A) 17 - 124 nmol/L [facility] Comment:THIS TEST WAS PERFOR MED AT:[facility] [address] [phone] SYLVESTER MD Blood Venous blood specimen / Unknown 08/21/2025 9:52 AM EDT 08/21/2025 2:16 PM EDT Yesenia Elaine MD LAB BLOOD ORDERABLES Final Re sult Performing Organization Address [facility] Co de Phone Number [facility] [address] [place] [phone] * (ABNORMAL) CBC auto differential (08/21/2025 9:52 AM EDT) White Blood Count 7.4 4.8 - 10.8 X10*3/uL [facility] Red Blood Count 4.69 4.20 - 5.50 X10*6/uL [facility] Hemoglobin 13.3 12.0 - 16.0 g/dl [facility] Hematocrit 42.5 37.0 - 47.0 % [facility] Mean Corpuscular Volume 90.6 80.0 - 98.0 fL [facility] Mean Corpuscular Hemoglobin 28.4 27.0 - 33.0 pg [facility] Mean Corpuscular HGB Conc 31.3 31.0 - 35.0 g/dl [facility] Red Cell Distribution Width 12.8 11.0 - 16.0 % [facility] Platelet Count 290 160 - 400 X10*3/uL [facility] Mean Platelet Volume 11.2 9.4 - 12.3 fL [facility] Neutrophils Percent Auto 53.6 45 - 73 % [facility] Imm Gran Pct Auto 0.4 0.0 - 0.4 % [facility] Lymphocytes Percent Auto 33.5 20 - 40 % [facility] Monocytes Percent Auto 5.4 2 - 11 % [facility] Eosinophils Percent Auto 7.0(H) 0 - 4 % [facility] Basophils Percent Auto 0.1 0 - 2 % [facility] NRBC Pct Auto 0.0 0.0 - 0.2 /100WBC [facility] Neutrophils Absolute Auto 4.0 2.0 - 8.3 x10*3/uL [facility] Imm Gran Abs Auto 0.03 0.00 - 0.03 X10*3/uL [facility] Lymphocytes Absolute Auto 2.5 1.2 - 4.9 X10*3/uL [facility] Monocytes Absolute Auto 0.4 0.1 - 1.2 X10*3/uL [facility] Eosinophils Absolute Auto 0.5(H) 0.0 - 0.4 X10*3/uL [facility] Basophils Absolute Auto 0.0 0.0 - 0.2 X10*3/uL [facility] NRBC Abs Auto 0.000 0.0 - 0.012 X10*3/uL [facility] Blood Venous blood specimen / Unknown 08/21/2025 9:52 AM EDT 08/21/2025 2:16 PM EDT Yesenia Elaine MD LAB BLOOD ORDERABLES Final Re sult Performing Organization Address [facility] Co de Phone Number [facility] [address] [place] [phone] * Hepatitis C Antibody with Reflex to HCV, RNA, Quantitative, Real-Time PCR (08/21/2025 9:52 AM EDT) Hepatitis C Antibody Nonreactive Nonreactive [facility] Comment:Antibodies to HCV no t detected; does not exclude early acuteHCV infection. Blood Venous blood specimen / Unknown 08/21/2025 9:52 AM EDT 08/21/2025 2:23 PM EDT Yesenia Elaine MD LAB BLOOD ORDERABLES Final Re sult Performing Organization Address [facility] de Phone Number [facility] [address] [place] [phone] * Insulin (08/21/2025 9:52 AM EDT) Insulin 18 2 - 29 uU/mL [facility] Comment:This test was perfor med using the [employer] chemiluminescentmethod. Values obtained from different assay methods [...] ORDERABLES Final Re sult Performing Organization Address [facility] Co de Phone Number [facility] [address] [place] [phone] * (ABNORMAL) DHEA Sulfate (08/21/2025 9:52 AM EDT) DHEA Sulfate 406(A) 14 - 349 mcg/dL [facility] Comment:THIS TEST WAS PERFOR MED AT:[facility] [address] [phone] SYLVESTER MD Blood Venous blood specimen / Unknown 08/21/2025 9:52 AM EDT 08/21/2025 2:16 PM EDT Yesenia Elaine MD LAB BLOOD ORDERABLES Final Re sult Performing Organization Address [facility]/ZIP Co de Phone Number [facility] [address] [place] [phone] * Androstenedione (08/21/2025 9:52 AM EDT) Androstenedione 65 ng/dL [facility] Comment:Adult Female Referen ce Ranges for Androstenedione: Mid Follicular: 51- 213 ng/dL Surge: 73-230 ng/dL Mid Luteal: 73-184 ng/dL Postmenopausal Phase: 20-75 ng/dLThis test was developed and its analytical performancecharacteristics have been determined by [employer].It has not been cleared or approved by the FDA. This assayhas been validated pursuant to the CLIA regulations and isused for clinical purposes.THIS TEST WAS PERFORMED AT:[employer]/LAINEZ [id number] [facility] [place] [address]NTPDCELAINE GAONA MD,PHD,TOSIN Blood Venous blood specimen / Unknown 08/21/2025 9:52 AM EDT 08/21/2025 2:16 PM EDT Yesenia Elaine MD LAB BLOOD ORDERABLES Final Re sult Performing Organization Address [facility]/ZIP Co de Phone Number [facility] [address] [place] [phone] * HIV-1/2 Antigen and Antibodies, Fourth Generation, with Reflexes (08/21/2025 9:52 AM EDT) HIV AB/AG Nonreactive Nonreactive [facility] Comment:HIV-1 p24 Ag and/or HIV-1/HIV-2 Ab not detected.A test result that is nonreactive does not exclude thepossibility of exposure to or infection with HIV-1 and/orHIV-2. Nonreactive results in this assay for individualswith prior exposure to HIV-1 and/or HIV-2 may be due toantigen and antibody levels that are below the limit ofdetection of this assay.The [employer] HIV Ag/Ab Combo assay result andsupplemental assay results should be interpreted inconjunction with the patient's clinical presentation,history and other laboratory results. If the results areinconsistent with clinical evidence, additional testing issuggested to confirm the result. Blood Venous blood specimen / Unknown 08/21/2025 9:52 AM EDT 08/21/2025 2:23 PM EDT us Yesenia Elaine MD LAB BLOOD ORDERABLES Final Re sult [facility] [address] [place] [phone] * Testosterone, Free (Dialysis) And Total, MS (08/21/2025 9:52 AM EDT) Testosterone, Total 21 2 - 45 ng/dL [facility] Comment:For additional infor mation, please refer [email or web address]/faq/[email or web address](This link is being provided for informational/educational purposes only.)This test was developed and its analytical performancecharacteristics have been determined by [employer] [place], [place]. It hasnot been cleared or approved by the U.S. Food and DrugAdministration. This assay has been validated pursuantto the CLIA regulations and is used for clinicalpurposes. Testosterone, Free 3.6 0.1 - 6.4 pg/mL [facility] Comment:This test was develo ped and its analytical performancecharacteristics have been determined by [employer] [place], [place]. It hasnot been cleared or approved by the U.S. Food and DrugAdministration. This assay has been validated pursuantto the CLIA regulations and is used for clinicalpurposes.THIS TEST WAS PERFORMED AT:[employer] [id number] [place] [address]VWPSPMGCALLIE ARRINGTON MD,PHD Blood Venous blood specimen / Unknown 08/21/2025 9:52 AM EDT 08/21/2025 2:16 PM EDT us Yesenia Elaine MD LAB BLOOD ORDERABLES Final Re sult [facility] [address] [place] [phone] * Varicella Zoster Antibody, IgG (08/21/2025 9:52 AM EDT) Varicella IgG Antibody 13.10 S/CO [facility] Comment:Signal to Cut-off S/ CO [...] Antibody Immunity Screen, ACIF.THIS TEST WAS PERFORMED AT:[facility] [address] [phone] SYLVESTER MD Blood Venous blood specimen / Unknown 08/21/2025 9:52 AM EDT 08/21/2025 2:23 PM EDT us Yesenia Elaine MD LAB BLOOD ORDERABLES Final Re sult Performing Organization Address [facility]/ZIP Co de Phone Number [facility] [address] [place] [phone] * T4, Free (08/21/2025 9:52 AM EDT) Free T4 (Free Thyroxine) 0.96 0.71 - 1.85 ng/dL [facility] 08/21/2025 9:52 AM EDT 08/21/2025 2:23 PM EDT us Yesenia Elaine MD LAB BLOOD ORDERABLES Final Re sult Performing Organization Address [facility] Co de Phone Number [facility] [address] [place] [phone] * Lipid Panel, Standard (08/21/2025 9:52 AM EDT) Triglycerides 95 <150 mg/dL [facility] Comment:Desirable Triglyceri de: less than 150 mg/dLBorderline High Triglyceride 150-199 mg/dLHigh Triglyceride: 200-499 mg/dLVery High Triglyceride: greater than or equal to 5OO mg/dL Cholesterol 154 <200 mg/dL [facility] Comment:Desirable Cholestero l: less than 200 mg/dLBorderline High Cholesterol: 200-239 mg/dLHigh Cholesterol: greater than 239 mg/dL LDL Cholesterol Calculated 90 <100 mg/dL [facility] Comment:Desirable LDL: less than 100 mg/dLNear Optimal/Above Optimal LDL: 110- 129 mg/dLBorderline High LDL: 130-159 mg/dLHigh LDL: 160-189 mg/dLVery High LDL: greater than or equal to 190 mg/dL HDL Cholesterol 45 >40 mg/dL [facility] Comment:Desirable HDL: great er than 40 mg/dL Note: This HDL assay may give artificially low results in patients with liver disease. Blood Venous blood specimen / Unknown 08/21/2025 9:52 AM EDT 08/21/2025 2:23 PM EDT us Yesenia Elaine MD LAB BLOOD ORDERABLES Final Re sult [facility] [address] [place] [phone] * (ABNORMAL) Comprehensive Metabolic Panel (08/21/2025 9:52 AM EDT) Sodium 141 135 - 145 mmol/L [facility] Potassium 4.0 3.3 - 5.1 mmol/L [facility] Chloride 106 96 - 108 mmol/L [facility] Carbon Dioxide 28 22 - 29 mmol/L [facility] Anion Gap 11(L) 12 - 20 [facility] Urea Nitrogen (BUN) 18(H) 9 - 16 mg/dL [facility] Creatinine, Serum 0.49(L) 0.5 - 1.4 mg/dL [facility] Estimated Glomerular Filt Rate >60 [facility] Comment:Chronic Kidney Disea se: Estimated GFR < 60 mL/min/1.50q0Uxfliw Kidney Disease: Estimated GFR < 15 mL/min/1.73m2 Glucose 89 60 - 115 mg/dL [facility] Calcium 9.2 8.4 - 10.2 mg/dL [facility] Bilirubin, Total 0.4 0.0 - 1.0 mg/dL [facility] Aspartate Amino Transferase 27 5 - 31 U/L [facility] Alanine Aminotransferase 31 0 - 31 U/L [facility] Total Protein 7.5 6.5 - 8.0 g/dL [facility] Albumin Level 4.5 3.5 - 5.0 g/dL [facility] Alkaline Phosphatase 63 39 - 117 U/L [facility] Blood Venous blood specimen / Unknown 08/21/2025 9:52 AM EDT 08/21/2025 2:23 PM EDT us Yesenia Elaine MD LAB BLOOD ORDERABLES Final Re sult [facility] [address] [place] [phone] from Last 3 Months Insurance [facility] , [address] [place] [address] Care Teams Rn International Relationship Specialty Start Date End Date Yesenia Elaine MD [address] [place] [phone] PCP - General Family Medicine 08/11/25
--- OUTSIDE RECORDS SUMMARY | 2025-09-29 22:00 | XMS_ITS | Encounter Summary ---
Author Organization [employer] Address [address] [facility] [address] [place] [address] Care Team Providers Care It Program Manager Name Role Phone Yesenia Elaine MD Primary Care Provider [phone] Encounter Details Date Type Department Care Team (Latest Contact Info) Description 09/24/2025 Travel Social History Tobacco Use Types Packs/Day [...] Description 11/17/2025 11:30 AM EST Office Visit [facility] [address] [place] [address] Yesenia Elaine MD [address] [place] [address] documented as of this encounter Visit Diagnoses Not on filedocumented in this encounter Additional Health Concerns Assessment Noted Time PHQ-9 Depression Total Score: 4 08/11/20 10:23 AM EDT documented as of this encounter Care Teams It Program Manager Relationship Specialty Start Date End Date Yesenia Elaine MD [address] [place] [address] PCP - General Family Medicine 08/11/25 documented as of this encounter
--- OUTSIDE RECORDS SUMMARY | 2025-09-29 22:01 | XMS_ITS | Encounter Summary ---
Author Organization [employer] Address [address] [facility] [address] [place] [address] Care Team Providers Care Laborer Drying Department Name Role Phone Yesenia Elaine MD Primary Care Provider [phone] Encounter Details Date Type Department Care Team ([facility] Contact Info) Description 09/10/2025 Results Follow-Up [facility] [address] [place] [address] Yesenia Elaine MD [address] [place] [address] Pap Smear Social History Tobacco Use Types Packs/Day Years [...] Description 11/17/2025 11:30 AM EST Office Visit [facility] [address] [place] [address] Yesenia Elaine MD [address] [place] [address] documented as of this encounter Visit Diagnoses Not on filedocumented in this encounter Additional Health Concerns Assessment Noted Time PHQ-9 Depression Total Score: 4 08/11/20 10:23 AM EDT documented as of this encounter Care Teams Laborer Drying Department Relationship Specialty Start Date End Date Yesenia Elaine MD [address] [place] [address] PCP - General Family Medicine 08/11/25 documented as of this encounter
== END 2025-09-29 13:22 | disposition home or self-care (01) ==
LOC: HO.US 13:21
PROVIDERS: PCP Family Medicine; Visit Provider Family Medicine
DX: N93.9 Abnormal uterine and vaginal bleeding, unspecified (principal)
CPT/HCPCS: 76830; 76856

== ENCOUNTER → 2025-09-29 13:24 | Outpatient (BNV) | payer OTHER, SELFPAY | PROVIDERS: PCP Family Medicine; Visit Provider Radiology Diagnostic Radiology | DX: N83.202 Unspecified ovarian cyst, left side (principal) | CPT/HCPCS: 76830; 76856 ==